=== PATIENT | male | born 1985 | race Caucasian/White ===

== ENCOUNTER 2017-06-20 15:37 | Emergency (ER) | payer OTHER ==
[2017-06-20 15:40] VITALS: BP 106/56; PULSE 81; RESP 12; TEMP 98.2; O2SAT 99
[2017-06-20] MEDS ORDERED: MIRA50TA PO (16:13)
[2017-06-20] MEDS ORDERED: OXYB5TAB8 PO (16:13)
[2017-06-20] MEDS ORDERED: BACL10TA PO (16:13)
--- NOTE | 2017-06-20 16:21 | PD ---
HPI Chief Complaint: GI Complaint Time Seen by Provider: 15:55 Travel History International Travel<30 days: No Contact w/Intl Traveler<30days: No Traveled to known affect area: No History of Present Illness HPI This is a 31-year-old male who presents to the emergency department with a history of cervical spine injury who comes in with bright red blood per rectum. Patient reports that he uses a micro-enema once every other day to evacuate his bowels. 2 days ago he did not evacuation which was normal and then today he had a large amount of blood following the enema. He says even before the enema he had some blood streaks in his diaper. His symptoms are constant, moderate severity with no associated lightheadedness or dizziness. The patient does say 1 week ago he had a little bit of blood with his stool and he said that his nurse had to do a fairly aggressive fecal evacuation with some digital stimulation but in the interim he had a completely normal bowel movement. He does have a history of hemorrhoids but does not feel like any hemorrhoids or swollen currently. He is chronically constipated. He does not take any laxatives. He says usually a micro-enema every other day keeps him regular. PFSH Past Medical History Narrative Medical cervical spine injury spasticity chronic constipation Social History Narrative Social History Pt. is a student at [employer] from [employer] Tobacco Use: No Allergies-Medications (Allergen,Severity, Reaction): Coded Allergies: No Known Allergies (Unverified , 06/20/17) Reported Meds & Prescriptions Reported Meds & Active Scripts Active Reported Ditropan (Oxybutynin Chloride) 5 Mg Tab 5 Mg PO DAILY Myrbetriq (Mirabegron) 50 Mg Tab 50 Mg PO DAILY Baclofen 10 Mg Tab 10 Mg PO DAILY Review of Systems Except as stated in HPI: all other systems reviewed are Neg Physical Exam Narrative GENERAL: Thin, no acute distress SKIN: Focused skin assessment warm and dry. HEAD: Atraumatic. Normocephalic. EYES: Pupils equal and round. No injection or drainage. ENT: Moist mucous membranes NECK: Trachea midline. CARDIOVASCULAR: Regular rate and rhythm. No murmur appreciated. RESPIRATORY: Clear to auscultation. Breath sounds equal bilaterally. GASTROINTESTINAL: Abdomen soft, non-tender, nondistended. External hemorrhoid appreciated on exam with no thrombosis. No fecal impaction, bright red blood is appreciated in the rectum. No obvious anal fissures or tears. MUSCULOSKELETAL: No obvious deformities. NEUROLOGICAL: Awake and alert. No obvious cranial nerve deficits. Complete paralysis with some contracture of the bilateral lower extremities. PSYCHIATRIC: Appropriate mood and affect; insight and judgment normal. Data Data Last Documented VS Vital Signs Date Time Temp Pulse Resp B/P (MAP) Pulse Ox O2 Delivery O2 Flow Rate FiO2 06/20/17 15:40 98.2 81 12 106/56 (73) 99 Orders Orders Complete Blood Count With Diff (06/20/17 16:11) Comprehensive Metabolic Panel (06/20/17 16:11) ^ Insert Iv (06/20/17 16:11) Mineral Oil Enema (Fleet Mineral Oil Nicole (06/20/17 17:45) Labs Laboratory Tests Test 06/20/17 16:30 White Blood Count 10.9 TH/MM3 Red Blood Count 4.39 MIL/MM3 Hemoglobin 13.4 GM/DL Hematocrit 39.0 % Mean Corpuscular Volume 88.9 FL Mean Corpuscular Hemoglobin 30.5 PG Mean Corpuscular Hemoglobin Concent 34.3 % Red Cell Distribution Width 13.2 % Platelet Count 289 TH/MM3 Mean Platelet Volume 7.5 FL Neutrophils (%) (Auto) 73.9 % Lymphocytes (%) (Auto) 15.0 % Monocytes (%) (Auto) 9.6 % Eosinophils (%) (Auto) 0.8 % Basophils (%) (Auto) 0.7 % Neutrophils # (Auto) 8.0 TH/MM3 Lymphocytes # (Auto) 1.6 TH/MM3 Monocytes # (Auto) 1.0 TH/MM3 Eosinophils # (Auto) 0.1 TH/MM3 Basophils # (Auto) 0.1 TH/MM3 CBC Comment DIFF FINAL Differential Comment Blood Urea Nitrogen 15 MG/DL Creatinine 0.61 MG/DL Random Glucose 97 MG/DL Total Protein 7.2 GM/DL Albumin 3.3 GM/DL Calcium Level 8.8 MG/DL Alkaline Phosphatase 70 U/L Aspartate Amino Transf (AST/SGOT) 16 U/L Alanine Aminotransferase (ALT/SGPT) 26 U/L Total Bilirubin 0.3 MG/DL Sodium Level 137 MEQ/L Potassium Level 4.1 MEQ/L Chloride Level 102 MEQ/L Carbon Dioxide Level 29.1 MEQ/L Anion Gap 6 MEQ/L Estimat Glomerular Filtration Rate 155 ML/MIN MDM Medical Decision Making Medical Screen Exam Complete: Yes Emergency Medical Condition: Yes Interpretation(s) Afebrile, no tachycardia, normotensive No leukocytosis Electrolytes are reassuring Differential Diagnosis Fecal impaction, bowel obstruction, hemorrhoids, anal fissure, anal tear Narrative Course This is a 31-year-old male who presents to the emergency department with a history of paraplegia who has had some rectal bleeding in the setting of his typical bowel regimen which involves microenemas and digital stimulation every 2 days. He was unable to have a bowel movement today and he had bright red blood so he became concerned and came to the emergency department. Here in the emergency department his Labs are all reassuring. On exam I did not feel a fecal impaction. We performed a mineral oil enema which had some result but not copious amount. I think the patient is still safe to follow-up with gastroenterology as an outpatient. He has no signs of bowel obstruction, no physical exam findings consistent with fecal impaction and I recommended that he take MiraLAX once a day and continue his current bowel regimen. I did speak to Dr. Santamaria who agreed with the plan. I suspect the bright red blood per rectum is due to his enemas and digital stimulation, and I think at this point the risks of colonoscopy outweigh the benefits. He can follow up with gastroenterology and discuss this with them in clinic and I asked him to return to the emergency department if he feels worse. Diagnosis Primary Impression: Bright red blood per rectum Patient Instructions: General Instructions Additional Instructions: If you develop a large amount of rectum bleeding, severe or worsening abdominal pain, fever>100.4, persistent vomiting or inability to eat or drink return to the emergency department immediately. Follow up with a live ammunition inspector as an outpatient. Take MiraLAX once to twice a day until then. Med/Other Pt SpecificInfo: Prescription(s) given Scripts Polyethylene Glycol 3350 Powder (Miralax Powder) 17 Gm Powd 17 GM PO DAILY for Constipation, #1 CAN 0 Refills Mix and dissolve one measuring cap-ful (17 grams) in water or juice. Prov: Leigh Lynn MD 06/20/17 Disposition: 01 DISCHARGE HOME Condition: Stable Leigh Lynn MD Jun 20, 2017 16:21
[2017-06-20 16:43] LABS: BASOPHIL # 0.1 TH/MM3 (0-0.2); BASOPHIL % 0.7 % (0.0-2.0); EOSINOPHIL # 0.1 TH/MM3 (0-0.4); EOSINOPHIL % 0.8 % (0.0-4.0); HEMOGLOBIN 13.4 GM/DL (13.0-17.0); LYMPHOCYTE # 1.6 TH/MM3 (1.0-4.8); MEAN CELL VOLUME 88.9 FL (80.0-100.0); MEAN CORPUSCULAR HEMOGLOBIN 30.5 PG (27.0-34.0); MEAN CORPUSCULAR HGB CONC 34.3 % (32.0-36.0); MEAN PLATELET VOLUME 7.5 FL (7.0-11.0); MONO % 9.6 % (0.0-8.0); NEUT % 73.9 % (16.0-70.0); PLATELET COUNT 289 TH/MM3 (150-450); RED BLOOD COUNT 4.39 MIL/MM3 (4.50-5.90); RED CELL DISTRIBUTION WIDTH 13.2 % (11.6-17.2); WHITE BLOOD COUNT 10.9 TH/MM3 (4.0-11.0)
[2017-06-20 17:04] LABS: ALBUMIN 3.3 GM/DL (3.4-5.0); AST (GOT) 16 U/L (15-37); BICARBONATE 29.1 MEQ/L (21.0-32.0); BLOOD UREA NITROGEN 15 MG/DL (7-18); CALCIUM 8.8 MG/DL (8.5-10.1); CHLORIDE 102 MEQ/L (98-107); CREATININE 0.61 MG/DL (0.60-1.30); GLOMERULAR FILTRATION RATE 155 ML/MIN (>89); GLUCOSE,RANDOM 97 MG/DL (74-106); SODIUM (NA) 137 MEQ/L (136-145)
[2017-06-20 17:05] LABS: ALT (GPT) 26 U/L (12-78)
[2017-06-20 17:07] LABS: ALKALINE PHOSPHATASE 70 U/L (45-117); TOTAL BILIRUBIN ADULT 0.3 MG/DL (0.2-1.0); TOTAL PROTEIN 7.2 GM/DL (6.4-8.2)
[2017-06-20] MEDS ORDERED: MINERAL OIL ENEMA 118 ML BTL RECTAL ONE (17:45)
[2017-06-20] MEDS ORDERED: MIRA3350 PO (19:21)
== END 2017-06-20 19:31 | disposition home or self-care (01) ==
LOC: NEPC 15:37
DX: K62.5 Hemorrhage of anus and rectum (principal); G82.20 Paraplegia, unspecified; Z87.828 Personal history of other (healed) physical injury and trauma
CPT/HCPCS: 80053; 85025; 99283

== ENCOUNTER 2017-06-21 00:57 | Inpatient (IN) | payer OTHER ==
[2017-06-21] VITALS (7 sets, daily range): BP systolic 88–102; BP diastolic 53–60; PULSE 65–83; RESP 14–18; TEMP 96.4–98.5; O2SAT 97–99
[~2017-06-21] VITALS: Ht 165.1 cm; Wt 65.0 kg
[~2017-06-21 00:57] MED LIST: BACL10TA PO; MIRA3350 PO; MIRA50TA PO; OXYB5TAB8 PO
--- NOTE | 2017-06-21 01:24 | PD ---
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 Reported Ditropan (Oxybutynin Chloride) 5 Mg Tab 5 Mg PO DAILY Myrbetriq (Mirabegron) 50 Mg Tab 50 Mg PO DAILY Baclofen 10 Mg Tab 10 Mg PO DAILY Review of Systems Except as stated in HPI: all other systems reviewed are Neg General / Constitutional: No: Fever Eyes: No: Visual changes HENT: No: Headaches Cardiovascular: No: Chest Pain or Discomfort Respiratory: No: Shortness of Breath Gastrointestinal: Positive: Hematochezia Genitourinary: No: Dysuria Musculoskeletal: No: Pain Skin: No Rash Neurologic: No: Weakness Psychiatric: No: Depression Endocrine: No: Polydipsia Hematologic/Lymphatic: No: Easy Bruising Physical Exam Narrative GENERAL: SKIN: Warm and dry. HEAD: Atraumatic. Normocephalic. EYES: Pupils equal and round. No scleral icterus. No injection or drainage. ENT: No nasal bleeding or discharge. Mucous membranes pink and moist. NECK: Trachea midline. No JVD. CARDIOVASCULAR: Regular rate and rhythm. RESPIRATORY: No accessory muscle use. Clear to auscultation. Breath sounds equal bilaterally. GASTROINTESTINAL: Abdomen soft, non-tender, nondistended. RECTAL EXAM DID NOT SHOW ANY FISSURE OR EXTERNAL HEMORRHOID CAUSE OF BLEEDING, GROSS COAGULATED BLOOD NOTED IN HIS RECTAL VAULT WITHOUT ANY FORMED STOOL. MUSCULOSKELETAL: Extremities without clubbing, cyanosis, or edema. No obvious deformities. PARAPLEGIC WITH DIAPER AND INDWELLING SALAS. NEUROLOGICAL: Awake and alert. No obvious cranial nerve deficits. Motor grossly within normal limits. Five out of 5 muscle strength in the arms and legs. Normal speech. PSYCHIATRIC: Appropriate mood and affect; insight and judgment normal. Data Data Last Documented VS Orders Orders Type And Screen (06/21/17 01:27) Complete Blood Count With Diff (06/21/17 01:27) Place In Observation (06/21/17 ) Vital Signs (Adult) Q4H (06/21/17 02:06) Activity Oob Ad Laura (06/21/17 02:06) Intake + Output CECE.QSHIFT (06/21/17 02:06) Sodium Chloride 0.9% Flush (Ns Flush) (06/21/17 02:15) Sodium Chloride 0.9% Flush (Ns Flush) (06/21/17 09:00) Acetaminophen (Tylenol) (06/21/17 02:15) Ondansetron Inj (Zofran Inj) (06/21/17 02:15) Basic Metabolic Panel (Bmp) (06/22/17 06:00) Scd Bilateral/Knee High CECE.BID (06/21/17 02:06) Naloxone Inj (Narcan Inj) (06/21/17 02:15) Magnesium Hydroxide Liq (Milk Of Magnesi (06/21/17 02:15) Sennosides (Senokot) (06/21/17 02:15) Bisacodyl Supp (Dulcolax Supp) (06/21/17 02:15) Lactulose Liq (Lactulose Liq) (06/21/17 02:15) Hgb & Hct (06/21/17 07:00) Hgb & Hct (06/21/17 19:00) Hgb & Hct (06/22/17 01:00) Consult Gastroenterology (06/21/17 ) Admit Order (Ed Use Only) (06/21/17 02:24) Labs Laboratory Tests Test 06/21/17 01:40 White Blood Count 9.3 TH/MM3 Red Blood Count 4.31 MIL/MM3 Hemoglobin 12.8 GM/DL Hematocrit 37.9 % Mean Corpuscular Volume 87.9 FL Mean Corpuscular Hemoglobin 29.8 PG Mean Corpuscular Hemoglobin Concent 33.9 % Red Cell Distribution Width 12.9 % Platelet Count 291 TH/MM3 Mean Platelet Volume 7.3 FL Neutrophils (%) (Auto) 68.2 % Lymphocytes (%) (Auto) 20.9 % Monocytes (%) (Auto) 8.6 % Eosinophils (%) (Auto) 1.5 % Basophils (%) (Auto) 0.8 % Neutrophils # (Auto) 6.3 TH/MM3 Lymphocytes # (Auto) 1.9 TH/MM3 Monocytes # (Auto) 0.8 TH/MM3 Eosinophils # (Auto) 0.1 TH/MM3 Basophils # (Auto) 0.1 TH/MM3 CBC Comment DIFF FINAL Differential Comment MDM Medical Decision Making Medical Screen Exam Complete: Yes Emergency Medical Condition: Yes Medical Record Reviewed: Yes Differential Diagnosis internal hemorrhoid v av fistula v colitis v diverticulitis Narrative Course cbc, coags and bmp all wnl. added lft's wnl as well....ct abd/pelvis pending results at time patient was admitted to [facility] dr hollins Diagnosis Primary Impression: LOWER GI BLEED Admitting Information Admitting Physician Requests: Observation Scripts Docusate Sodium (Docusate Sodium) 100 Mg Cap 100 MG PO BID Y for CONSTIPATION, #30 CAP 0 Refills Prov: Thony Weinstein MD 06/25/17 Raji Dove MD Jun 21, 2017 01:24
[2017-06-21 01:46] LABS: AUTOMATED NEUTROPHIL # 6.3 TH/MM3 (1.8-7.7); BASOPHIL # 0.1 TH/MM3 (0-0.2); BASOPHIL % 0.8 % (0.0-2.0); EOSINOPHIL # 0.1 TH/MM3 (0-0.4); EOSINOPHIL % 1.5 % (0.0-4.0); HEMATOCRIT 37.9 % (39.0-51.0); HEMOGLOBIN 12.8 GM/DL (13.0-17.0); LYMPH % 20.9 % (9.0-44.0); LYMPHOCYTE # 1.9 TH/MM3 (1.0-4.8); MEAN CELL VOLUME 87.9 FL (80.0-100.0); MEAN CORPUSCULAR HEMOGLOBIN 29.8 PG (27.0-34.0); MEAN CORPUSCULAR HGB CONC 33.9 % (32.0-36.0); MEAN PLATELET VOLUME 7.3 FL (7.0-11.0); MONO % 8.6 % (0.0-8.0); MONOCYTE # 0.8 TH/MM3 (0-0.9); NEUT % 68.2 % (16.0-70.0); PLATELET COUNT 291 TH/MM3 (150-450); RED BLOOD COUNT 4.31 MIL/MM3 (4.50-5.90); RED CELL DISTRIBUTION WIDTH 12.9 % (11.6-17.2); WHITE BLOOD COUNT 9.3 TH/MM3 (4.0-11.0)
[2017-06-21] MEDS ORDERED: NALOXONE HCL 0.4 MG/ML AMP IV PUSH PRN (02:15)
[2017-06-21] MEDS ORDERED: BISACODYL 10 MG SUPP RECTAL PRN (02:15)
[2017-06-21] MEDS ORDERED: SENNOSIDES 8.6 MG TAB PO PRN (02:15)
[2017-06-21] MEDS ORDERED: ONDANSETRON HCL 4 MG/2 ML VIAL IVP PRN (02:15)
[2017-06-21] MEDS ORDERED: ACETAMINOPHEN 325 MG TAB PO PRN (02:15)
[2017-06-21] MEDS ORDERED: LACTULOSE SYRUP 20 GM/30 ML CUP PO PRN (02:15)
[2017-06-21] MEDS ORDERED: MAGNESIUM HYDROXIDE SUSP 30 ML CUP PO PRN (02:15)
[2017-06-21] MEDS ORDERED: SODIUM CHLORIDE 0.9% FLUSH 10 ML FLUSH IV FLUSH PRN (02:15)
--- NOTE | 2017-06-21 02:41 | HHI.HP ---
[facility] Primary Care Physician No Primary Care Physician Admission Diagnosis GI BLEED (BRBPR) Diagnoses: Travel History International Travel<30 Days: No Contact w/Intl Traveler <30 Da: No Traveled to Known Affected Are: No History of Present Illness -year-old male with a past medical history significant for spinal cord injury presents the emergency department with bright red blood per rectum. The patient reports that 1 week ago when doing his usual enema no stool was produced and his healthcare administrative assistant did digital stimulation resulting in the retrieval of several pieces of hard stool with minimal amounts of blood. Since that time the patient has done 2 micro-enemas and 2 full enemas without incident. Yesterday the patient was doing his usual micro-enema when he noticed a significant amount of blood with the enema. He came to the emergency department for evaluation, was not found to be actively bleeding, H&H was stable and was discharged to home. The patient reports he was getting ready for bed around midnight when he noticed that blood head seeped through his diaper and saturated his sheets. He returned to the emergency department where he was found to have approximately 120 cc's of bright red blood without stool present in his diaper. H&H remained stable. The patient denies any palpitation , shortness of breath or dizziness/lightheadedness. He reports he feels that he is in good health. He does endorse a 5 day history of fever with last symptoms 2 days ago. Denies nausea/vomiting or diarrhea. Vital signs: Temperature 98.2, pulse 81, respirations 12, BP 106/56, pulse ox 99% on room air. Review of Systems Denies fever or chills Denies blurry vision, otorrhea, rhinorrhea Denies sore throat and cough No chest pain, palpitations No shortness of breath or wheezing No abdominal pain Denies diarrhea/nausea/vomiting. Positive constipation. Denies muscle pain Denies focal weakness No rashes Past Family Social History Past Medical History Spinal cord injury at C5-C6, 14 years ago Past Surgical History Spinal fusion Reported Medications Reported Meds & Active Scripts Active Miralax Powder (Polyethylene Glycol 3350 Powder) 17 Gm Powd 17 Gm PO DAILY Mix and dissolve one measuring cap-ful (17 grams) in water or juice. Reported Ditropan (Oxybutynin Chloride) 5 Mg Tab 5 Mg PO DAILY Myrbetriq (Mirabegron) 50 Mg Tab 50 Mg PO DAILY Baclofen 10 Mg Tab 10 Mg PO DAILY Allergies: Coded Allergies: No Known Allergies (Unverified , 06/21/17) Family History Negative for coronary artery disease/diabetes mellitus Social History Denies alcohol, tobacco and illicit drugs Physical Exam Vital Signs Vital Signs Date Time Temp Pulse Resp B/P (MAP) Pulse Ox O2 Delivery O2 Flow Rate FiO2 06/21/17 01:00 98.2 72 16 102/60 (36) 98 Physical Exam GENERAL: Thin, male lying in bed SKIN: No rashes, ecchymoses or lesions. Cool and dry. HEAD: Atraumatic. Normocephalic. No temporal or scalp tenderness. EYES: Pupils equal round and reactive. Extraocular motions intact. No scleral icterus. No injection or drainage. ENT: Nose without bleeding, purulent drainage or septal hematoma. Throat without erythema, tonsillar hypertrophy or exudate. Uvula midline. Airway patent. NECK: Trachea midline. No JVD or lymphadenopathy. Supple, nontender, no meningeal signs. CARDIOVASCULAR: Regular rate and rhythm without murmurs, gallops, or rubs. RESPIRATORY: Clear to auscultation. Breath sounds equal bilaterally. No wheezes , rales, or rhonchi. GASTROINTESTINAL: Abdomen soft, non-tender, nondistended. No hepato-splenomegaly , or palpable masses. No guarding. : Indwelling Duran MUSCULOSKELETAL: Extremities without clubbing, cyanosis, or edema. No joint tenderness, effusion, or edema noted. Paraplegic. NEUROLOGICAL: Awake and alert. Cranial nerves II through XII intact. Normal speech. Laboratory Laboratory Tests Test 06/21/17 01:40 White Blood Count 9.3 Red Blood Count 4.31 Hemoglobin 12.8 Hematocrit 37.9 Mean Corpuscular Volume 87.9 Mean Corpuscular Hemoglobin 29.8 Mean Corpuscular Hemoglobin Concent 33.9 Red Cell Distribution Width 12.9 Platelet Count 291 Mean Platelet Volume 7.3 Neutrophils (%) (Auto) 68.2 Lymphocytes (%) (Auto) 20.9 Monocytes (%) (Auto) 8.6 Eosinophils (%) (Auto) 1.5 Basophils (%) (Auto) 0.8 Neutrophils # (Auto) 6.3 Lymphocytes # (Auto) 1.9 Monocytes # (Auto) 0.8 Eosinophils # (Auto) 0.1 Basophils # (Auto) 0.1 CBC Comment DIFF FINAL Differential Comment Result Diagram: 06/21/17 0140 Caprini VTE Risk Assessment Caprini VTE Risk Assessment: No/Low Risk (score <= 1) Caprini Risk Assessment Model Point Value = 1 Point Value = 2 Point Value = 3 Point Value = 5 Age 41-60 Minor surgery BMI > 25 kg/m2 Swollen legs Varicose veins or History of unexplained or recurrent spontaneous Oral contraceptives or hormone replacement Sepsis (< 1 month) Serious lung disease, including pneumonia (< 1 month) Abnormal pulmonary function Acute myocardial infarction Congestive heart failure (< 1 month) History of inflammatory bowel disease Medical patient at bed rest Age 61-74 Arthroscopic surgery Major open surgery (> 45 min) Laparoscopic surgery (> 45 min) Malignancy Confined to bed (> 72 hours) Immobilizing plaster cast Central venous access Age >= 75 History of VTE Family history of VTE Factor V Leiden Prothrombin [id number] Lupus anticoagulant Anticardiolipin antibodies Elevated serum homocysteine Heparin-induced thrombocytopenia Other congenital or acquired thrombophilia Stroke (< 1 month) Elective arthroplasty Hip, pelvis, or leg fracture Acute spinal cord injury (< 1 month) Prophylaxis Regimen Total Risk Factor Score Risk Level Prophylaxis Regimen 0-1 Low Early ambulation 2 Moderate Order ONE of the following: *Sequential Compression Device (SCD) *Heparin 5000 units SQ BID 3-4 Higher Order ONE of the following medications: *Heparin 5000 units SQ TID *Enoxaparin/Lovenox 40 mg SQ daily (WT < 150 kg, CrCl > 30 mL/min) *Enoxaparin/Lovenox 30 mg SQ daily (WT < 150 kg, CrCl > 10-29 mL/min) *Enoxaparin/Lovenox 30 mg SQ BID (WT < 150 kg, CrCl > 30 mL/min) AND/OR *Sequential Compression Device (SCD) 5 or more Highest Order ONE of the following medications: *Heparin 5000 units SQ TID (Preferred with Epidurals) *Enoxaparin/Lovenox 40 mg SQ daily (WT < 150 kg, CrCl > 30 mL/min) *Enoxaparin/Lovenox 30 mg SQ daily (WT < 150 kg, CrCl > 10-29 mL/min) *Enoxaparin/Lovenox 30 mg SQ BID (WT < 150 kg, CrCl > 30 mL/min) AND *Sequential Compression Device (SCD) Assessment and Plan Assessment and Plan Assessment/plan: 1. GI bleed H&H stable from yesterday Serial H&H every 6 hours IV Protonix Gastroenterology consulted, appreciate recommendations Clear liquid diet Monitor for signs of bleeding 2. Paraplegia Patient with indwelling Duran Continue home Ditropan, Myrbetriq and Baclofen FEN Clears NS at 75 cc/hr Electrolytes: monitor and replete prn Holding pharmacologic anticoagulation for active GI bleed Kinza Hayes MD Jun 21, 2017 02:41
[2017-06-21] MEDS ORDERED: PANTOPRAZOLE SODIUM 40 MG VIAL IV PUSH SCH (03:00)
[2017-06-21] MEDS: SODIUM CHLOR 0.9% 1000 ML INJ 1,000 ML IV SCH ×2 (03:10→16:04)
[2017-06-21] MEDS: BACLOFEN 10 MG TAB PO SCH (08:43)
[2017-06-21] MEDS: OXYBUTYNIN CHLORIDE 5 MG TAB PO SCH (08:43)
[2017-06-21] MEDS: SODIUM CHLORIDE 0.9% FLUSH 10 ML FLUSH IV FLUSH SCH ×2 (08:44→21:24)
[2017-06-21] MEDS ORDERED: Mirabegron (Myrbetriq) 50 MG) PO SCH (09:00)
[2017-06-21 09:13] LABS: HEMATOCRIT 35.2 % (39.0-51.0); HEMOGLOBIN 11.8 GM/DL (13.0-17.0)
--- NOTE | 2017-06-21 10:29 | PD.CONS ---
HPI History of Present Illness This is a 31 year old male with hx spinal cord injury who presented for c/o rectal bleeding. Last night he had sensation of having BM and found only fresh blood independent of stool.He admits having fever last week. Admits chronic constipation and regularly uses micro enemas for a bowel regimen. 1 week ago he was constipated requiring digital maneuvers to remove hard stool and saw scant BRBPR which improved. Cites chornic constipation that has been worse than usual in the last week. he thinks he may have an EGD many years ago from abd discomfort but recalls no details other than that nothing was found. Never had colonoscopy. No abd pain, n/v. Unsure if there has been weight loss. Denies feeling weak. Has concerns about procedures and autononmic dysreflexia. Not on blood thinners (Laura Bustamante) PFSH Past Medical History Spinal cord injury at C5-C6, 14 years ago Past Surgical History Spinal fusion (Laura Bustamante) Coded Allergies: No Known Allergies (Unverified , 06/21/17) Family History Negative for coronary artery disease/diabetes mellitus Social History Denies alcohol, tobacco and illicit drugs (Laura Bustamante) Review of Systems Constitutional: DENIES: Fever Endocrine: DENIES: Polydipsia Eyes: DENIES: Blurred vision Ears, nose, mouth, throat: DENIES: Hearing loss Respiratory: DENIES: Cough Cardiovascular: DENIES: Chest pain Gastrointestinal: COMPLAINS OF: Bloody stools, Constipation, DENIES: Abdominal pain, Black stools, Diarrhea, Nausea, Vomiting, Hematemesis Genitourinary: DENIES: Hematuria Musculoskeletal: DENIES: Joint Swelling Integumentary: DENIES: Pruritus Hematologic/lymphatic: DENIES: Bruising Immunologic/allergic: DENIES: Eczema Neurologic: COMPLAINS OF: Abnormal gait (wheelchair) Psychiatric: DENIES: Confusion (Laura Bustamante) GI Exam Vitals I&O Vital Signs Date Time Temp Pulse Resp B/P (MAP) Pulse Ox O2 Delivery O2 Flow Rate FiO2 06/21/17 08:40 96.5 82 18 97/53 (68) 97 06/21/17 03:56 98.1 73 18 91/53 (66) 98 06/21/17 03:16 98.5 65 14 91/54 (66) 98 Room Air 06/21/17 01:00 98.2 72 16 102/60 (74) 98 I/O 06/20/17 06/20/17 06/20/17 06/21/17 06/21/17 06/21/17 07:00 15:00 23:00 07:00 15:00 23:00 Output Total 200 ml Balance -200 ml Output Urine Total 200 ml Laboratory Test 06/21/17 01:40 06/21/17 08:55 White Blood Count 9.3 TH/MM3 Red Blood Count 4.31 MIL/MM3 Hemoglobin 12.8 GM/DL 11.8 GM/DL Hematocrit 37.9 % 35.2 % Mean Corpuscular Volume 87.9 FL Mean Corpuscular Hemoglobin 29.8 PG Mean Corpuscular Hemoglobin Concent 33.9 % Red Cell Distribution Width 12.9 % Platelet Count 291 TH/MM3 Mean Platelet Volume 7.3 FL Neutrophils (%) (Auto) 68.2 % Lymphocytes (%) (Auto) 20.9 % Monocytes (%) (Auto) 8.6 % Eosinophils (%) (Auto) 1.5 % Basophils (%) (Auto) 0.8 % Neutrophils # (Auto) 6.3 TH/MM3 Lymphocytes # (Auto) 1.9 TH/MM3 Monocytes # (Auto) 0.8 TH/MM3 Eosinophils # (Auto) 0.1 TH/MM3 Basophils # (Auto) 0.1 TH/MM3 CBC Comment DIFF FINAL Differential Comment Physical Examination HEENT: PERRL; normocephalic; atraumatic; no jaundice. CHEST: CTA CARDIAC: RRR ABDOMEN: Soft, nondistended, nontender; no hepatosplenomegaly; bowel sounds are present in all four quadrants. EXTREMITIES: No clubbing, cyanosis, or edema. SKIN: Normal; no rash; no jaundice. SCIENCE ANALYST: No focal deficits; alert and oriented times three. (Laura Bustamante [facility]) Assessment and Plan Plan ASSESSMENT - rectal bleeding - intermittent scant BRBPR with digital maneuvers and 2 d ago developed more profuse rectal bleeding independent of stool had severe constipation a week ago requiring mult digital maneuvers, cites swollen hemorrhoid as well. recommend colonoscopy, pt has concerns about procedures, sedation, and autonomic dysreflexia - chronic constipation with recent worsening - has been more constipated of late , see above. his bowel regimen consists of enemas and digital maneuvers, takes no medications - anemia - mild, normocytic. could be 2/2 above. - spinal cord injury PLAN - colonoscopy tomorrow - obtain consent - clear liquid diet today - NPO after midnight - mg citrate prep - can use dignishield when liquid stool during prep - NPO after midnight - monitor HH - add miralax daily - further recs to follow pt seen by myself and DR Matta and myself and this note is written on his behalf (Laura Bustamante) Physician Comments Seen and examined with JOEL, no bleeding. Colonoscopy planned for tomorrow with golytle prep. Discussed risks with pt. Thank you (Mitchell Matta MD) Laura Bustamante Jun 21, 2017 10:29 Mitchell Matta MD Jun 21, 2017 15:45
[2017-06-21] MEDS: POLYETHYLENE GLYCOL 17 GM PKG PO SCH (10:45)
--- NOTE | 2017-06-21 12:57 | HHI.PR ---
Subjective Remarks F/U Hematochezia. Had another episode of bright red blood per rectum this morning. Denies abdominal pain. Patient states usually has low BP denies syncope, dizziness, chest pain and shortness of breath. Discussed with nursing staff Objective Vitals Vital Signs Date Time Temp Pulse Resp B/P (MAP) Pulse Ox O2 Delivery O2 Flow Rate FiO2 06/21/17 12:07 96.6 70 18 98/56 (70) 99 06/21/17 08:40 96.5 82 18 97/53 (68) 97 06/21/17 03:56 98.1 73 18 91/53 (66) 98 06/21/17 03:16 98.5 65 14 91/54 (66) 98 Room Air 06/21/17 01:00 98.2 72 16 102/60 (74) 98 I/O 06/20/17 06/20/17 06/20/17 06/21/17 06/21/17 06/21/17 07:00 15:00 23:00 07:00 15:00 23:00 Output Total 200 ml Balance -200 ml Output Urine Total 200 ml Result Diagram: 06/21/17 0855 Objective Remarks GENERAL: Thin, male lying in bed SKIN: No rashes, ecchymoses or lesions. Cool and dry. CARDIOVASCULAR: Regular rate and rhythm without murmurs, gallops, or rubs. RESPIRATORY: Clear to auscultation. Breath sounds equal bilaterally. No wheezes , rales, or rhonchi. GASTROINTESTINAL: Abdomen soft, non-tender, nondistended. No guarding. : Indwelling Duran MUSCULOSKELETAL: Extremities without clubbing, cyanosis, or edema. No joint tenderness, effusion, or edema noted. Paraplegic. NEUROLOGICAL: Awake and alert. Cranial nerves II through XII intact. Normal speech. A/P Problem List: (1) GIB (gastrointestinal bleeding) ICD Code: K92.2 - Gastrointestinal hemorrhage, unspecified Assessment and Plan 1. GI bleed. Continue PPI. Patient for colonoscopy in the morning 2. Constipation. Continue MiraLAX 3. Anemia secondary to acute blood loss. Monitor hemoglobin and hematocrit to keep hemoglobin at least 8. 4. SCI with Paraplegia. Patient with indwelling Duran. Continue home Ditropan, Myrbetriq and Baclofen FEN Clears NS at 75 cc/hr Electrolytes: monitor and replete prn Holding pharmacologic anticoagulation for active GI bleed Discharge Planning Patient needing colonoscopy, discharge when cleared by GI Geovanny Llanos MD Jun 21, 2017 12:56
[2017-06-21 15:13] LABS: HEMATOCRIT 34.1 % (39.0-51.0); HEMOGLOBIN 11.8 GM/DL (13.0-17.0)
[2017-06-21 15:41] LABS: INTERNATIONAL NORMALIZED RATIO 1.2 RATIO; PROTHROMBIN TIME - PATIENT 12.1 SEC (9.8-11.6)
[2017-06-21] MEDS ORDERED: MAGNESIUM CITRATE SOLN 300 ML BTL PO ONE ×2 (16:00→18:00)
[2017-06-21] MEDS ORDERED: SODIUM CHLOR 0.9% 250 ML INJ 250 ML IV PRN (19:30)
[2017-06-21] MEDS ORDERED: SODIUM CHLOR 0.9% 250 ML INJ 250 ML IV ONE (19:30)
[2017-06-21 22:07] LABS: HEMATOCRIT 34.8 % (39.0-51.0); HEMOGLOBIN 12.2 GM/DL (13.0-17.0)
[2017-06-22 03:19] LABS: HEMATOCRIT 36.4 % (39.0-51.0); HEMOGLOBIN 12.5 GM/DL (13.0-17.0)
[2017-06-22 03:58] LABS: BICARBONATE 28.9 MEQ/L (21.0-32.0); CALCIUM 8.3 MG/DL (8.5-10.1); CREATININE 0.54 MG/DL (0.60-1.30)
[2017-06-22] MEDS ORDERED: POVIDONE IODINE 5% (ANTISEPSIS KIT) 4 APPLICATIONS EACH NARE PRN ×2 (05:30→10:00)
[2017-06-22] MEDS ORDERED: METOPROLOL TARTRATE 25 MG TAB PO PRN ×2 (05:30→10:00)
[2017-06-22] MEDS ORDERED: SODIUM CHLORID 0.9% 500 ML IV PRN ×2 (05:30→10:00)
[2017-06-22] MEDS ORDERED: LACTATED RINGER'S 1000 ML IV PRN ×2 (05:30→10:00)
[2017-06-22] MEDS ORDERED: CHLORHEXIDINE GLUCONATE 2 % 1 PACK (2 CLOTHS) TOPICAL PRN ×2 (05:30→10:00)
[2017-06-22 08:15] VITALS: BP 89/50; PULSE 62; RESP 18; TEMP 97.3; O2SAT 95
--- NOTE | 2017-06-22 08:25 | HHI.PR ---
Subjective Remarks Follow-up rectal bleeding. Decreasing hematochezia. Denies dizziness, syncope , chest pain or shortness of breath discussed with RN Objective Vitals Vital Signs Date Time Temp Pulse Resp B/P (MAP) Pulse Ox O2 Delivery O2 Flow Rate FiO2 06/22/17 08:15 97.3 62 18 89/50 (63) 95 06/21/17 20:10 98.5 67 18 100/54 (69) 97 06/21/17 16:51 96.4 83 18 88/54 (65) 99 06/21/17 12:07 96.6 70 18 98/56 (70) 99 06/21/17 08:40 96.5 82 18 97/53 (68) 97 I/O 06/21/17 06/21/17 06/21/17 06/22/17 06/22/17 06/22/17 07:00 15:00 23:00 07:00 15:00 23:00 Output Total 200 ml 1400 ml Balance -200 ml -1400 ml Output Urine Total 200 ml 1400 ml # Bowel Movements 2 Result Diagram: 06/22/17 0242 06/22/17 0242 Objective Remarks GENERAL: Thin, male lying in bed SKIN: No rashes, ecchymoses or lesions. Cool and dry. CARDIOVASCULAR: Regular rate and rhythm without murmurs, gallops, or rubs. RESPIRATORY: Clear to auscultation. Breath sounds equal bilaterally. No wheezes , rales, or rhonchi. GASTROINTESTINAL: Abdomen soft, non-tender, nondistended. No guarding. : Indwelling Duran MUSCULOSKELETAL: Extremities without clubbing, cyanosis, or edema. No joint tenderness, effusion, or edema noted. Paraplegic. NEUROLOGICAL: Awake and alert. Cranial nerves II through XII intact. Normal speech. A/P Problem List: (1) GIB (gastrointestinal bleeding) ICD Code: K92.2 - Gastrointestinal hemorrhage, unspecified Assessment and Plan 1. GI bleed. Continue PPI. Patient for colonoscopy today 2. Constipation. Continue MiraLAX 3. Anemia secondary to acute blood loss. Monitor hemoglobin and hematocrit to keep hemoglobin at least 8. 4. SCI with Paraplegia. Patient with indwelling Duran. Continue home Ditropan, Myrbetriq and Baclofen FEN Clears NS at 75 cc/hr Electrolytes: monitor and replete prn Holding pharmacologic anticoagulation for active GI bleed Discharge Planning Patient needing colonoscopy, discharge when cleared by GI Geovanny Llanos MD Jun 22, 2017 08:25
[2017-06-22] MEDS: OXYBUTYNIN CHLORIDE 5 MG TAB PO SCH (08:28)
[2017-06-22] MEDS: SODIUM CHLORIDE 0.9% FLUSH 10 ML FLUSH IV FLUSH SCH ×2 (08:28→20:14)
[2017-06-22] MEDS: PANTOPRAZOLE SOD 40 MG DELAYED RELEASE TAB PO SCH (08:28)
[2017-06-22] MEDS: POLYETHYLENE GLYCOL 17 GM PKG PO SCH (08:29)
[2017-06-22] MEDS: BACLOFEN 10 MG TAB PO SCH (08:29)
[2017-06-22] MEDS ORDERED: INSULIN HUMAN REGULAR 1,000 UNITS/10 ML VIAL SQ PRN (10:00)
--- NOTE | 2017-06-22 10:13 | GIPROC ---
[facility] [address] [facility]. [facility], [address] COLONOSCOPY PROCEDURE REPORT EXAM DATE: 06/22/2017 PATIENT NAME: Reuben Frank MR #: [id number] BIRTHDATE: 1985 ENDOSCOPIST: Mitchell Matta MD ORDER #: [id number] ASSISTANT TERMINAL MANAGER: Ish Hermosillo and Sully Buckner STATUS: inpatient INDICATIONS: The patient is a 31 yr old male here for a colonoscopy due to hematochezia PROCEDURE PERFORMED: Colonoscopy, diagnostic MEDICATIONS: None and Per Anesthesia. PREP QUALITY: The [place] Bowel Prep Score was Right colon 2, Mid colon 2, and Left colon 1. Total = 5. PREP TYPE:GoLytely ESTIMATED BLOOD LOSS: None CONSENT: The patient understands the risks and benefits of the procedure and understands that these risks include, but are not limited to: sedation, allergic reaction, infection, perforation and/or bleeding. Alternative means of evaluation and treatment include, among others: physical exam, x-rays, and/or surgical intervention. The patient elects to proceed with this endoscopic procedure. medical equipment was checked for proper function. Hand hygiene and appropriate measures for infection prevention was taken. After the risks, benefits and alternatives of the procedure were thoroughly explained, Informed consent was verified, confirmed and timeout was successfully executed by the treatment team. A digital exam revealed external hemorrhoids The Pentax [id number] endoscope was introduced through the anus and advanced to the cecum, which was identified by both the appendix and ileocecal valve. The instrument was then slowly withdrawn as the colon was fully examined. COLON FINDINGS: Abnormal mucosa in the rectum with a lot of blood in the rectum. ? walled off perforation, vs. diverticulum vs. mass. The colon mucosa was otherwise normal. The scope was then completely withdrawn from the patient and the procedure terminated. PROCEDURE WITHDRAWAL TIME:7minutes ADVERSE EVENTS: There were no complications. IMPRESSIONS: 1. Abnormal mucosa in the rectum with a lot of blood in the rectum. ? walled off perforation, vs. diverticulum vs. mass 2. The colon mucosa was otherwise normal 3. Revealed external hemorrhoids RECOMMENDATIONS: 1. Surgery 2. Xray for CT of abdomen with contrast 3. Xray for CT of pelvis with contrast RECALL: Return 3 days Flexible Sigmoidoscopy Mitchell Matta MD eSigned: Mitchell Matta MD 06/22/2017 10:13 AM cc: PATIENT NAME: Reuben Frank MR#: [id number]
[2017-06-22] MEDS ORDERED: DO NOT ADM ANY ANTICOAGULANT DRUGS PRN (11:00)
[2017-06-22 11:56] VITALS: BP 107/54; PULSE 56; RESP 18; TEMP 98.3; O2SAT 95
[2017-06-22] MEDS ORDERED: PHENYLEPH/NS 1000 MCG/10 ML SYR IV ONE (12:00)
[2017-06-22] MEDS ORDERED: PROPOFOL 200 MG/20 ML AMP IV ONE (12:00)
[2017-06-22] MEDS ORDERED: LIDOCAINE HCL 1% PF 5 ML SYRINGE OTHER ONE (12:00)
[2017-06-22] MEDS ORDERED: DIATRIZOATE MEGLUM/DIATRIZOATE SOD 9 ML CUP PO ONE (16:15)
[2017-06-22 17:36] VITALS: BP 118/66; PULSE 66; RESP 18; TEMP 98.3; O2SAT 97
[2017-06-22] MEDS ORDERED: IOHEXOL 350 MG/ML 10 ML VIAL (for RAD DIAG) IVCONTRAST ONE (18:02)
[2017-06-22] MEDS: SODIUM CHLOR 0.9% 1000 ML INJ 1,000 ML IV SCH ×2 (18:21→19:00)
--- NOTE | 2017-06-22 18:32 | RADRPT ---
EXAM DATE/TIME: 06/22/2017 17:57 [place] COMPARISON: No previous studies available for comparison. INDICATIONS : Blood in stool. IV CONTRAST: 82 cc Omnipaque 350 (iohexol) IV ORAL CONTRAST: Prescribed oral contrast ingested. RADIATION DOSE: 4.97 CTDIvol (mGy) MEDICAL HISTORY : Parapalegia. SURGICAL HISTORY : Cervical fusion ENCOUNTER: Initial ACUITY: 1 day PAIN SCALE: 0/10 LOCATION: Bilateral abdomen TECHNIQUE: Volumetric scanning of the abdomen and pelvis was performed. Using automated exposure control and ad justment of the mA and/or kV according to patient size, radiation dose was kept as low as reasonably achievable to obtain optimal diagnostic quality images. DICOM format image data is available electro nically for review and comparison. FINDINGS: Lung bases demonstrate trace left pleural fluid and atelectasis. No acute findings in the liver, spleen, adrenals, kidneys or pancreas. There is inflammatory change around the rectum. An air-fluid level is present on the left side ischio rectal fossa with fluid measuring about 3.6 cm in diameter, suspicious for perirectal abscess. There is also some suspected loculated air in the right side that may represent small perirectal abscesses. Catheter present within bladder. Abnormal soft tissue over the lower sacrum and coccyx, possibly chele y decubitus ulcer. CONCLUSION: 1. They are suspected perirectal abscesses measuring up to 3.6 cm on the left with surrounding inflam matory change extending into the ischiorectal fossa bilaterally. Also suspected small perirectal absc ess is on the right. 2. Trace pleural fluid. Abhilash Sen MD on June 22, 2017 at 18:22 Board Certified Radiologist. This report was verified electronically.
[2017-06-22 21:54] VITALS: BP 108/65; PULSE 69; RESP 17; TEMP 98.3; O2SAT 97
[2017-06-23 01:14] VITALS: BP 96/52; PULSE 69; RESP 17; TEMP 98.4; O2SAT 95
[2017-06-23 04:45] VITALS: BP 123/56; PULSE 75; RESP 17; TEMP 99; O2SAT 97
[2017-06-23 06:56] LABS: AUTOMATED NEUTROPHIL # 8.3 TH/MM3 (1.8-7.7); BASOPHIL # 0.1 TH/MM3 (0-0.2); BASOPHIL % 0.5 % (0.0-2.0); EOSINOPHIL # 0.1 TH/MM3 (0-0.4); EOSINOPHIL % 1.1 % (0.0-4.0); HEMATOCRIT 35.6 % (39.0-51.0); LYMPH % 14.3 % (9.0-44.0); LYMPHOCYTE # 1.5 TH/MM3 (1.0-4.8); MEAN CELL VOLUME 88.9 FL (80.0-100.0); MEAN CORPUSCULAR HEMOGLOBIN 29.9 PG (27.0-34.0); MEAN CORPUSCULAR HGB CONC 33.7 % (32.0-36.0); MEAN PLATELET VOLUME 7.6 FL (7.0-11.0); MONO % 7.5 % (0.0-8.0); MONOCYTE # 0.8 TH/MM3 (0-0.9); NEUT % 76.6 % (16.0-70.0); PLATELET COUNT 253 TH/MM3 (150-450); RED CELL DISTRIBUTION WIDTH 12.8 % (11.6-17.2); WHITE BLOOD COUNT 10.8 TH/MM3 (4.0-11.0)
[2017-06-23 08:00] VITALS: BP 102/56; PULSE 74; RESP 16; TEMP 97.8; O2SAT 98
[2017-06-23] MEDS: POLYETHYLENE GLYCOL 17 GM PKG PO SCH (08:38)
[2017-06-23] MEDS: SODIUM CHLORIDE 0.9% FLUSH 10 ML FLUSH IV FLUSH SCH ×2 (08:38→21:40)
[2017-06-23] MEDS: PANTOPRAZOLE SOD 40 MG DELAYED RELEASE TAB PO SCH (08:39)
[2017-06-23] MEDS: SODIUM CHLOR 0.9% 1000 ML INJ 1,000 ML IV SCH ×2 (08:40→17:33)
[2017-06-23] MEDS: OXYBUTYNIN CHLORIDE 5 MG TAB PO SCH (08:40)
[2017-06-23] MEDS: BACLOFEN 10 MG TAB PO SCH (08:40)
--- NOTE | 2017-06-23 09:52 | HHI.GIFU ---
Subjective Remarks Pt resting in bed. Rectal bleeding has decreased. (Laura Bustamante) Objective Vitals I&O Vital Signs Date Time Temp Pulse Resp B/P (MAP) Pulse Ox O2 Delivery O2 Flow Rate FiO2 06/23/17 08:00 97.8 74 16 102/56 (71) 98 06/23/17 04:45 99.0 75 17 123/56 (78) 97 06/23/17 01:14 98.4 69 17 96/52 (67) 95 06/22/17 21:54 98.3 69 17 108/65 (79) 97 06/22/17 17:36 98.3 66 18 118/66 (83) 97 06/22/17 11:56 98.3 56 18 107/54 (71) 95 06/22/17 11:05 92 17 96 Room Air 06/22/17 11:00 97.8 91 17 93/59 (70) 96 Room Air 06/22/17 10:50 88 17 90/52 (65) 97 Nasal Cannula 2 06/22/17 10:45 89 18 87/54 (65) 99 Nasal Cannula 3 06/22/17 10:35 98.5 85 18 92/51 (65) 98 Nasal Cannula 3 I/O 06/22/17 06/22/17 06/22/17 06/23/17 06/23/17 06/23/17 07:00 15:00 23:00 07:00 15:00 23:00 Intake Total 1190 ml Output Total 450 ml 2150 ml 700 ml 750 ml Balance -450 ml -960 ml -700 ml -750 ml Intake Oral 1190 ml Output Urine Total 450 ml 2150 ml 700 ml 750 ml # Bowel Movements 2 Laboratory Laboratory Tests Test 06/23/17 04:11 White Blood Count 10.8 Red Blood Count 4.00 Hemoglobin 12.0 Hematocrit 35.6 Mean Corpuscular Volume 88.9 Mean Corpuscular Hemoglobin 29.9 Mean Corpuscular Hemoglobin Concent 33.7 Red Cell Distribution Width 12.8 Platelet Count 253 Mean Platelet Volume 7.6 Neutrophils (%) (Auto) 76.6 Lymphocytes (%) (Auto) 14.3 Monocytes (%) (Auto) 7.5 Eosinophils (%) (Auto) 1.1 Basophils (%) (Auto) 0.5 Neutrophils # (Auto) 8.3 Lymphocytes # (Auto) 1.5 Monocytes # (Auto) 0.8 Eosinophils # (Auto) 0.1 Basophils # (Auto) 0.1 CBC Comment DIFF FINAL Differential Comment Imaging Last Impressions Abdomen/Pelvis CT 06/22/17 0000 Signed Impressions: Service Date/Time: Thursday, June 22, 2017 17:57 - CONCLUSION: 1. They are suspected perirectal abscesses measuring up to 3.6 cm on the left with surrounding inflammatory change extending into the ischiorectal fossa bilaterally. Also suspected small perirectal abscess is on the right. 2. Trace pleural fluid. Abhilash Sen MD Physical Exam HEENT: PERRL; normocephalic; atraumatic; no jaundice. CHEST: CTA CARDIAC: RRR ABDOMEN: Soft, nondistended, nontender; no hepatosplenomegaly; bowel sounds are present in all four quadrants. EXTREMITIES: No clubbing, cyanosis, or edema. SKIN: Normal; no rash; no jaundice. AUTOCAD OPERATOR: No focal deficits; alert and oriented times three. (Laura Bustamante) Assessment and Plan Plan ASSESSMENT - rectal bleeding, abnormal colonoscopy, abnormal ct - intermittent scant BRBPR with digital maneuvers and 2 d ago developed more profuse rectal bleeding independent of stool had severe constipation a week ago requiring mult digital maneuvers, cites swollen hemorrhoid as well. s/p colonoscopy found abnormal mucosa rectum, blood, walled off perforation vs diverticulum vs abscess. subsequent CT showed suspected perirectal abscesses. d/w CRS, they will evaluate pt. - chronic constipation with recent worsening - has been more constipated of late , see above. his bowel regimen consists of enemas and digital maneuvers, takes no medications - anemia - mild, normocytic. could be 2/2 above. hh stable - spinal cord injury PLAN - CRS consult - ID consult - monitor HH - add miralax daily when pt taking PO -GI will sign off. please reconsult if needed pt seen by myself and DR Matta and myself and this note is written on his behalf (Laura Bustamante) Physician Comments CT finding reviewed. Discussed with Dr. Harmon yesterday. Consult ID. GI will sign off, reconsult PRN. Thank you (Mitchell Matta MD) Laura Bustamante Jun 23, 2017 09:52 Mitchell Matta MD Jun 23, 2017 11:25
[2017-06-23 12:00] VITALS: BP 91/52; PULSE 74; RESP 16; TEMP 98.4; O2SAT 97
[2017-06-23] MEDS ORDERED: LIDOCAINE HCL 1% PF 5 ML SYRINGE OTHER ONE (12:00)
[2017-06-23] MEDS ORDERED: KETOROLAC TROMETHAMINE 30 MG/ML (IVP) VIAL IV PUSH ONE (12:00)
[2017-06-23] MEDS ORDERED: PHENYLEPH/NS 1000 MCG/10 ML SYR IV ONE (12:00)
[2017-06-23] MEDS ORDERED: ePHEDrine/NS 25 MG/5 ML SYRINGE IV ONE (12:00)
[2017-06-23] MEDS ORDERED: ONDANSETRON HCL 4 MG/2 ML VIAL IV ONE (12:00)
[2017-06-23] MEDS ORDERED: PROPOFOL 200 MG/20 ML AMP IV ONE (12:00)
--- NOTE | 2017-06-23 12:13 | PD.ID.CON ---
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 ? walled off perforation, vs. diverticulum vs. mass CT was with suspected perirectal abscesses measuring up to 3.6 cm on the left with surrounding inflammatory change extending into the ischiorectal fossa bilaterally. Also suspected small perirectal abscess is on the right. On presentatioj afebrile, normal WBC Pt was seen by Dr Harmon and is scheduled for surgery this afternoon Review of Systems Gastrointestinal: COMPLAINS OF: Bloody stools, Constipation Neurologic: COMPLAINS OF: Abnormal gait, Localized weakness, Paresthesias Except as stated in HPI: all other systems reviewed are Neg Past Family Social History Allergies: Coded Allergies: No Known Allergies (Unverified , 06/21/17) Past Medical History Spinal cord injury at C5-C6, 14 years ago Past Surgical History Spinal fusion Active Ordered Medications Medications where reviewed in EMR Antibiotics Include: none Family History Negative for coronary artery disease/diabetes mellitus Social History Denies alcohol, tobacco and illicit drugs Physical Exam Vital Signs Vital Signs Date Time Temp Pulse Resp B/P (MAP) Pulse Ox O2 Delivery O2 Flow Rate FiO2 06/23/17 08:00 97.8 74 16 102/56 (71) 98 06/23/17 04:45 99.0 75 17 123/56 (78) 97 06/23/17 01:14 98.4 69 17 96/52 (67) 95 06/22/17 21:54 98.3 69 17 108/65 (79) 97 06/22/17 17:36 98.3 66 18 118/66 (83) 97 Physical Exam CONSTITUTIONAL/GENERAL: This is an adequately nourished patient, in no apparent distress. TUBES/LINES/DRAINS: SKIN: No jaundice, rashes, or lesions. Skin temperature appropriate. Not diaphoretic. HEAD: Atraumatic. Normocephalic. EYES: Pupils equal and round and reactive. Extraocular motions intact. No scleral icterus. No injection or drainage. Fundi not examined. ENT: Hearing grossly normal. Nose without bleeding or purulent drainage. Throat without visible erythema, exudates, masses, or lesions. NECK: Trachea midline. well healed scar on the back of the neck CARDIOVASCULAR: Regular rate and rhythm without murmurs, gallops, or rubs. No JVD. Peripheral pulses symmetric. RESPIRATORY/CHEST: Symmetric, unlabored respirations. Clear to auscultation. Breath sounds equal bilaterally. No wheezes, rales, or rhonchi. GASTROINTESTINAL: Abdomen soft, non-tender, nondistended. No hepato-splenomegaly , or palpable masses. No guarding. Bowel sounds present. GENITOURINARY: Without palpable bladder distension. MUSCULOSKELETAL: Extremities without clubbing, cyanosis, or edema. No mottling or clubbing. NEUROLOGICAL: Awake and alert. Incomplete tetraplegia. Able to move proximal BUE Normal speech Follows commands. Cognitively sharp PSYCHIATRIC: No obvious anxiety/depression. no apparent hallucinations or other psychotic thought process. Laboratory Laboratory Tests Test 06/23/17 04:11 White Blood Count 10.8 Red Blood Count 4.00 Hemoglobin 12.0 Hematocrit 35.6 Mean Corpuscular Volume 88.9 Mean Corpuscular Hemoglobin 29.9 Mean Corpuscular Hemoglobin Concent 33.7 Red Cell Distribution Width 12.8 Platelet Count 253 Mean Platelet Volume 7.6 Neutrophils (%) (Auto) 76.6 Lymphocytes (%) (Auto) 14.3 Monocytes (%) (Auto) 7.5 Eosinophils (%) (Auto) 1.1 Basophils (%) (Auto) 0.5 Neutrophils # (Auto) 8.3 Lymphocytes # (Auto) 1.5 Monocytes # (Auto) 0.8 Eosinophils # (Auto) 0.1 Basophils # (Auto) 0.1 CBC Comment DIFF FINAL Differential Comment Result Diagram: 06/23/17 0411 06/22/17 0242 Imaging Last Impressions Abdomen/Pelvis CT 06/22/17 0000 Signed Impressions: Service Date/Time: Thursday, June 22, 2017 17:57 - CONCLUSION: 1. They are suspected perirectal abscesses measuring up to 3.6 cm on the left with surrounding inflammatory change extending into the ischiorectal fossa bilaterally. Also suspected small perirectal abscess is on the right. 2. Trace pleural fluid. Abhilash Sen MD Assessment and Plan Assessment and Plan A: perirectal abscesses SCI withnresultant tetra[legia PLAN: Unasyn agree with plans for surgery Ethel Person MD Jun 23, 2017 12:13
--- NOTE | 2017-06-23 13:56 | HHI.PR ---
Subjective Remarks Follow-up rectal bleeding. Continues to have mild intermittent hematochezia. Discussed CT results agrees with CRS consultation. Discussed with GI Objective Vitals Vital Signs Date Time Temp Pulse Resp B/P (MAP) Pulse Ox O2 Delivery O2 Flow Rate FiO2 06/23/17 12:00 98.4 74 16 91/52 (65) 97 06/23/17 08:00 97.8 74 16 102/56 (71) 98 06/23/17 04:45 99.0 75 17 123/56 (78) 97 06/23/17 01:14 98.4 69 17 96/52 (67) 95 06/22/17 21:54 98.3 69 17 108/65 (79) 97 06/22/17 17:36 98.3 66 18 118/66 (83) 97 I/O 06/22/17 06/22/17 06/22/17 06/23/17 06/23/17 06/23/17 07:00 15:00 23:00 07:00 15:00 23:00 Intake Total 1190 ml Output Total 450 ml 2150 ml 700 ml 750 ml Balance -450 ml -960 ml -700 ml -750 ml Intake Oral 1190 ml Output Urine Total 450 ml 2150 ml 700 ml 750 ml # Bowel Movements 2 Result Diagram: 06/23/17 0411 06/22/17 0242 Imaging Last Impressions Abdomen/Pelvis CT 06/22/17 0000 Signed Impressions: Service Date/Time: Thursday, June 22, 2017 17:57 - CONCLUSION: 1. They are suspected perirectal abscesses measuring up to 3.6 cm on the left with surrounding inflammatory change extending into the ischiorectal fossa bilaterally. Also suspected small perirectal abscess is on the right. 2. Trace pleural fluid. Abhilash Sen MD Objective Remarks GENERAL: Thin, male lying in bed SKIN: No rashes, ecchymoses or lesions. Cool and dry. CARDIOVASCULAR: Regular rate and rhythm without murmurs, gallops, or rubs. RESPIRATORY: Clear to auscultation. Breath sounds equal bilaterally. No wheezes , rales, or rhonchi. GASTROINTESTINAL: Abdomen soft, non-tender, nondistended. No guarding. : Indwelling Duran MUSCULOSKELETAL: Extremities without clubbing, cyanosis, or edema. No joint tenderness, effusion, or edema noted. Paraplegic. NEUROLOGICAL: Awake and alert. Cranial nerves II through XII intact. Normal speech. Urinary Catheter: Yes Assessment to: Continue Duran insert reason: Prolonged Immobilization Date of Insertion: Jun 20, 2017 A/P Problem List: (1) GIB (gastrointestinal bleeding) ICD Code: K92.2 - Gastrointestinal hemorrhage, unspecified Assessment and Plan 1. GI bleed. Stable. Continue PPI. Colonoscopy with the following results : Abnormal mucosa in the rectum with a lot of blood in the rectum. ? walled off perforation, vs. diverticulum vs. mass. Abdominal CT showed perirectal abscess. ID started IV Unasyn and CRS will take patient to OR today 2. Constipation. Continue MiraLAX 3. Anemia secondary to acute blood loss. Monitor hemoglobin and hematocrit to keep hemoglobin at least 8. 4. SCI with Paraplegia. Patient with indwelling Duran. Continue home Ditropan, Myrbetriq and Baclofen FEN NPO NS at 75 cc/hr Electrolytes: monitor and replete prn Holding pharmacologic anticoagulation for active GI bleed Discharge Planning Patient needing sx Geovanny Llanos MD Jun 23, 2017 13:56
[2017-06-23] MEDS ORDERED: AMPICILLIN-SULBACTAM INJ 3 GM in SODIUM CHLORIDE 0.9% INJ 100 ML IV SCH (14:00)
[2017-06-23] MEDS ORDERED: LACTATED RINGER'S 1000 ML IV PRN (14:45)
[2017-06-23] MEDS ORDERED: POVIDONE IODINE 5% (ANTISEPSIS KIT) 4 APPLICATIONS EACH NARE PRN (14:45)
[2017-06-23] MEDS ORDERED: METOPROLOL TARTRATE 25 MG TAB PO PRN (14:45)
[2017-06-23] MEDS ORDERED: SODIUM CHLORID 0.9% 500 ML IV PRN (14:45)
[2017-06-23] MEDS ORDERED: CHLORHEXIDINE GLUCONATE 2 % 1 PACK (2 CLOTHS) TOPICAL PRN (14:45)
[2017-06-23] MEDS ORDERED: ACETAMINOPHEN 1000 MG/100 ML 100 ML IV ONE (15:23)
[2017-06-23] MEDS ORDERED: BUPIVACAINE/EPINEPHRINE 0.5% PF 10 ML VIAL ONE (15:53)
[2017-06-23] MEDS ORDERED: LIDOCAINE 2%/EPINEPHrine PF 1:200,000 20ML SDV ONE (15:53)
[2017-06-23] MEDS ORDERED: BACITRACIN TOP OINT 15 GM TUBE ONE (15:54)
--- NOTE | 2017-06-23 17:00 | HHI.PR ---
Immediate Post Op Note Procedure Date: Jun 23, 2017 Pre Op Diagnosis: rectal bleeding Post Op Diagnosis: rectal tear Surgeon: Blane Harmon Line Ordering Clinician(s): none Procedure: EUA, irrigation , debridement rectal tear Findings: lg tear ant rectal wall Complications: none Specimen(s) removed: none Estimated blood loss: min Anesthesia: MAC Drains: None IVF Patient to: PACU Patient Condition: Good Blane Harmon MD Jun 23, 2017 17:00
[2017-06-23] MEDS ORDERED: DO NOT ADM ANY ANTICOAGULANT DRUGS PRN (17:07)
[2017-06-23] MEDS ORDERED: MIDAZOLAM HCL 2 MG/2 ML VIAL ONE (17:27)
[2017-06-23] MEDS ORDERED: SODIUM CHLORID 0.9% 500 ML INJ 500 ML IV ONE (18:00)
[2017-06-23 20:00] VITALS: BP 95/55; PULSE 57; RESP 16; TEMP 97.3; O2SAT 98
[2017-06-23 22:30] VITALS: BP 85/51; PULSE 61; RESP 16; TEMP 97.9; O2SAT 99
[2017-06-24] VITALS (7 sets, daily range): BP systolic 73–106; BP diastolic 41–72; PULSE 58–88; RESP 16–18; TEMP 97.3–99; O2SAT 97–100
[2017-06-24 06:12] LABS: AUTOMATED NEUTROPHIL # 5.5 TH/MM3 (1.8-7.7); BASOPHIL % 0.5 % (0.0-2.0); EOSINOPHIL # 0.1 TH/MM3 (0-0.4); EOSINOPHIL % 1.3 % (0.0-4.0); HEMATOCRIT 32.4 % (39.0-51.0); HEMOGLOBIN 11.1 GM/DL (13.0-17.0); LYMPH % 19.7 % (9.0-44.0); LYMPHOCYTE # 1.5 TH/MM3 (1.0-4.8); MEAN CELL VOLUME 87.7 FL (80.0-100.0); MEAN CORPUSCULAR HEMOGLOBIN 30.1 PG (27.0-34.0); MEAN CORPUSCULAR HGB CONC 34.3 % (32.0-36.0); MEAN PLATELET VOLUME 7.2 FL (7.0-11.0); MONOCYTE # 0.6 TH/MM3 (0-0.9); NEUT % 70.5 % (16.0-70.0); PLATELET COUNT 273 TH/MM3 (150-450); RED BLOOD COUNT 3.69 MIL/MM3 (4.50-5.90); RED CELL DISTRIBUTION WIDTH 12.7 % (11.6-17.2); WHITE BLOOD COUNT 7.7 TH/MM3 (4.0-11.0)
[2017-06-24 06:32] LABS: BICARBONATE 28.6 MEQ/L (21.0-32.0); CALCIUM 7.9 MG/DL (8.5-10.1); CREATININE 0.58 MG/DL (0.60-1.30); MAGNESIUM 2.5 MG/DL (1.5-2.5)
--- NOTE | 2017-06-24 07:54 | HHI.PR ---
Subjective Remarks C/R Surg POD #1 afebrile, VSS UO good ce PO Objective - Vital Signs Date Time Temp Pulse Resp B/P (MAP) Pulse Ox O2 Delivery O2 Flow Rate FiO2 06/24/17 04:00 97.4 64 16 106/72 (83) 99 06/23/17 18:15 Nasal Cannula 2 Result Diagram: 06/24/1742406/24/17424 Objective Remarks PE abd - soft, flat rectal - packing dc'd, clean A/P Assessment and Plan Imp: stable post-op OOB adv diet dc plans Blane Harmon MD Jun 24, 2017 07:54
[2017-06-24] MEDS: BACLOFEN 10 MG TAB PO SCH (09:09)
[2017-06-24] MEDS: PANTOPRAZOLE SOD 40 MG DELAYED RELEASE TAB PO SCH (09:09)
[2017-06-24] MEDS: OXYBUTYNIN CHLORIDE 5 MG TAB PO SCH (09:10)
[2017-06-24] MEDS: SODIUM CHLORIDE 0.9% FLUSH 10 ML FLUSH IV FLUSH SCH ×2 (09:11→21:00)
[2017-06-24] MEDS: POLYETHYLENE GLYCOL 17 GM PKG PO SCH (09:11)
--- NOTE | 2017-06-24 09:11 | MP ---
cc: RAHUL CAMEJO M.D. DATE OF SURGERY 06/23/2017 PREOPERATIVE DIAGNOSIS Rectal bleeding, abnormal CT scan. PROCEDURE Exam under anesthesia with irrigation and debridement of a rectal tear. POSTOPERATIVE DIAGNOSIS Rectal bleeding, abnormal CT scan. SURGEON Dr. Camejo PROCEDURE After adequate anesthesia sedation, the patient was placed in the left lateral decubitus position and supported appropriately. The buttocks were then taped apart, prepped with Betadine solution and draped in the usual sterile fashion. Anal canal was gently dilated and a half-parsons retractor inserted. Examination revealed a tear of the mucosa in the anterior part of the rectum with rather jagged mucosa. The smooth muscle was visible at the base of the wound. There was some necrotic material around the tear and this was debrided sharply using electrocautery for hemostasis. The tear did extend up several inches and the base of the tear did appear to be healthy. No sinus tracts or other fistulas were identified. The remainder of the rectal mucosa appeared normal and the proximal bowel appeared to be pretty healthy. After adequate irrigation and debridement, hemostasis appeared adequate. The small cavity was packed with a long Kerlix dressing and a large fluff dressing placed externally. The patient tolerated the procedure quite well and was brought to recovery room in stable condition. MD MONSE Martinez/KEYSHAWN /8:51 AM /9:01 AM
[2017-06-24] MEDS: SODIUM CHLOR 0.9% 1000 ML INJ 1,000 ML IV SCH (11:00)
[2017-06-24] MEDS ORDERED: SODIUM CHLOR 0.9% 250 ML INJ 250 ML IV ONE (14:15)
--- NOTE | 2017-06-24 15:42 | HHI.PR ---
Subjective Remarks Downward trend in hemoglobin. Current hemoglobin is 11.1. She also had low blood pressures in the 70s systolic earlier today. Patient feels well. No complaints. Objective Vital Signs Date Time Temp Pulse Resp B/P (MAP) Pulse Ox O2 Delivery O2 Flow Rate FiO2 06/24/17 13:14 82/60 (67) 06/24/17 12:00 99.0 88 18 73/41 (52) 99 06/24/17 08:00 97.7 60 18 101/57 (72) 97 06/24/17 04:00 97.4 64 16 106/72 (83) 99 06/23/17 22:30 97.9 61 16 85/51 (62) 99 06/23/17 20:00 97.3 57 16 95/55 (68) 98 06/23/17 18:15 97.8 63 18 93/52 (66) 97 Nasal Cannula 2 06/23/17 18:00 74 21 96/54 (68) 97 Nasal Cannula 2 06/23/17 17:50 79 21 85/54 (64) 97 Nasal Cannula 2 06/23/17 17:45 81 23 82/47 (59) 100 Nasal Cannula 2 06/23/17 17:41 85 18 82/52 (62) 99 06/23/17 17:35 92 18 82/46 (58) 99 06/23/17 17:32 93 17 66/38 (47) 99 06/23/17 17:30 82 23 89/52 (64) 99 Nasal Cannula 2 06/23/17 17:15 82 23 89/52 (64) 99 Nasal Cannula 2 06/23/17 17:07 98.0 73 14 92/55 (67) 99 Nasal Cannula 2 I/O 06/23/17 06/23/17 06/23/17 06/24/17 06/24/17 06/24/17 07:00 15:00 23:00 07:00 15:00 23:00 Intake Total 900 ml 1200 ml 398 ml Output Total 700 ml 750 ml 325 ml 900 ml 1500 ml Balance -700 ml -750 ml 575 ml 300 ml 398 ml -1500 ml Intake Oral 0 ml 1200 ml IV Total 500 ml 398 ml Other 400 ml Output Urine Total 700 ml 750 ml 300 ml 900 ml 1500 ml Estimated Blood Loss 25 ml Result Diagram: 06/24/1742406/24/17424 Objective Remarks GENERAL: NAD, A&Ox3 HEAD: Normocephalic. NECK: Supple, trachea midline. No lymphadenopathy. EYES: No scleral icterus. No injection or drainage. CARDIOVASCULAR: Regular rate and rhythm without murmurs, gallops, or rubs. RESPIRATORY: Breath sounds equal bilaterally. No accessory muscle use. GASTROINTESTINAL: Abdomen soft, non-tender, nondistended. MUSCULOSKELETAL: No cyanosis, or edema. SKIN: Warm and dry. NEURO: Global neurological deficitis (chronic). A/P Problem List: (1) GIB (gastrointestinal bleeding) ICD Code: K92.2 - Gastrointestinal hemorrhage, unspecified Assessment and Plan 31-year-old male admitted secondary to GI bleed GI bleed Anemia Follow H&H for stability If stability as documented via H&H patient can be considered for discharge Rectal tear Status post debridement of necrotic tissues and repair Continue Unasyn Colorectal surgery following History of spinal cord injury Paraplegia Continue chronic indwelling Duran catheter Continue Ditropan, Myrbetriq and Baclofen DVT prophylaxis Anticoagulants avoided due to bleeding Thony Weinstein MD Jun 24, 2017 15:42
[2017-06-24] MEDS ORDERED: MIDODRINE 5 MG TAB PO PRN (17:00)
[2017-06-25 05:11] LABS: AUTOMATED NEUTROPHIL # 2.7 TH/MM3 (1.8-7.7); BASOPHIL % 0.8 % (0.0-2.0); EOSINOPHIL # 0.1 TH/MM3 (0-0.4); HEMATOCRIT 33.6 % (39.0-51.0); HEMOGLOBIN 11.6 GM/DL (13.0-17.0); LYMPH % 35.1 % (9.0-44.0); LYMPHOCYTE # 1.8 TH/MM3 (1.0-4.8); MEAN CELL VOLUME 87.8 FL (80.0-100.0); MEAN CORPUSCULAR HEMOGLOBIN 30.2 PG (27.0-34.0); MEAN CORPUSCULAR HGB CONC 34.4 % (32.0-36.0); MEAN PLATELET VOLUME 7.2 FL (7.0-11.0); MONOCYTE # 0.5 TH/MM3 (0-0.9); NEUT % 52.1 % (16.0-70.0); PLATELET COUNT 264 TH/MM3 (150-450); RED BLOOD COUNT 3.83 MIL/MM3 (4.50-5.90); RED CELL DISTRIBUTION WIDTH 12.8 % (11.6-17.2); WHITE BLOOD COUNT 5.2 TH/MM3 (4.0-11.0)
[2017-06-25 05:34] LABS: ALBUMIN 2.9 GM/DL (3.4-5.0); AST (GOT) 9 U/L (15-37); BICARBONATE 29.3 MEQ/L (21.0-32.0); BLOOD UREA NITROGEN 6 MG/DL (7-18); CALCIUM 8.4 MG/DL (8.5-10.1); CHLORIDE 105 MEQ/L (98-107); CREATININE 0.59 MG/DL (0.60-1.30); GLOMERULAR FILTRATION RATE 161 ML/MIN (>89); GLUCOSE,RANDOM 89 MG/DL (74-106); SODIUM (NA) 141 MEQ/L (136-145)
[2017-06-25 05:38] LABS: ALKALINE PHOSPHATASE 57 U/L (45-117); ALT (GPT) 15 U/L (12-78); TOTAL BILIRUBIN ADULT 0.2 MG/DL (0.2-1.0); TOTAL PROTEIN 6.5 GM/DL (6.4-8.2)
[2017-06-25 08:00] VITALS: BP 118/69; PULSE 77; RESP 16; TEMP 98.3; O2SAT 99
[2017-06-25] MEDS: POLYETHYLENE GLYCOL 17 GM PKG PO SCH ×2 (09:00→10:40)
[2017-06-25] MEDS: SODIUM CHLORIDE 0.9% FLUSH 10 ML FLUSH IV FLUSH SCH (09:00)
[2017-06-25 09:06] VITALS: BP 118/69; PULSE 83; RESP 17; TEMP 98.3; O2SAT 99
[2017-06-25] MEDS: BACLOFEN 10 MG TAB PO SCH (10:39)
[2017-06-25] MEDS: PANTOPRAZOLE SOD 40 MG DELAYED RELEASE TAB PO SCH (10:39)
[2017-06-25] MEDS: OXYBUTYNIN CHLORIDE 5 MG TAB PO SCH (10:39)
--- NOTE | 2017-06-25 11:05 | HHI.FF ---
Face to Face Verification Diagnosis: (1) Rectal laceration (2) GIB (gastrointestinal bleeding) Home Health Nursing Order: Signs/symptoms of disease process Wound care and dressing changes Instructions: Monitor post op wound (rectal laceration repair) for signs of infection and monitor for baseline bowel movement pattern (prior baseline is bowel movements every 1-2 days. I have seen patient Reuben Frank on 06/25/17. My clinical findings support the need for the requested home health care services because: Ltd mobility - disease progression Deconditioned w/ increased weakness Limited ability to care for self I certify that my clinical findings support that this patient is homebound because: Unsteady gait/balance Unsafe to leave home unassisted [id number] bed/chair Unable to use public transportation Thony Weinstein MD Jun 25, 2017 11:05
[2017-06-25] MEDS ORDERED: DOCU100C15 PO (15:01)
--- NOTE | 2017-06-25 16:09 | HHI.DS ---
Discharge Summary Admission Date Jun 23, 2017 at 14:09 Discharge Date: Jun 25, 2017 Admitting Diagnosis GI BLEED (BRBPR) (1) GIB (gastrointestinal bleeding) ICD Code: K92.2 - Gastrointestinal hemorrhage, unspecified Diagnosis: Principal Procedures Rectal fissure repair Brief History - From Admission -year-old male with a past medical history significant for spinal cord injury presents the emergency department with bright red blood per rectum. The patient reports that 1 week ago when doing his usual enema no stool was produced and his pharmacy innovation assistant did digital stimulation resulting in the retrieval of several pieces of hard stool with minimal amounts of blood. Since that time the patient has done 2 micro-enemas and 2 full enemas without incident. Yesterday the patient was doing his usual micro-enema when he noticed a significant amount of blood with the enema. He came to the emergency department for evaluation, was not found to be actively bleeding, H&H was stable and was discharged to home. The patient reports he was getting ready for bed around midnight when he noticed that blood head seeped through his diaper and saturated his sheets. He returned to the emergency department where he was found to have approximately 120 cc's of bright red blood without stool present in his diaper. H&H remained stable. The patient denies any palpitation , shortness of breath or dizziness/lightheadedness. He reports he feels that he is in good health. He does endorse a 5 day history of fever with last symptoms 2 days ago. Denies nausea/vomiting or diarrhea. Vital signs: Temperature 98.2, pulse 81, respirations 12, BP 106/56, pulse ox 99% on room air. CBC/BMP: 06/25/17 0451 06/25/17 0451 Significant Findings Laboratory Tests Test 06/23/17 04:11 06/24/17 04:25 06/25/17 04:51 Red Blood Count 4.00 MIL/MM3 (4.50-5.90) 3.69 MIL/MM3 (4.50-5.90) 3.83 MIL/MM3 (4.50-5.90) Hemoglobin 12.0 GM/DL (13.0-17.0) 11.1 GM/DL (13.0-17.0) 11.6 GM/DL (13.0-17.0) Hematocrit 35.6 % (39.0-51.0) 32.4 % (39.0-51.0) 33.6 % (39.0-51.0) Neutrophils (%) (Auto) 76.6 % (16.0-70.0) 70.5 % (16.0-70.0) Neutrophils # (Auto) 8.3 TH/MM3 (1.8-7.7) Blood Urea Nitrogen 5 MG/DL (7-18) 6 MG/DL (7-18) Creatinine 0.58 MG/DL (0.60-1.30) 0.59 MG/DL (0.60-1.30) Random Glucose 64 MG/DL (74-106) Calcium Level 7.9 MG/DL (8.5-10.1) 8.4 MG/DL (8.5-10.1) Monocytes (%) (Auto) 10.0 % (0.0-8.0) Albumin 2.9 GM/DL (3.4-5.0) Aspartate Amino Transf (AST/SGOT) 9 U/L (15-37) PE at Discharge PE abd - soft, flat rectal - packing dc'd, clean Hospital Course Mr. Frank is a 31-year-old male. He was admitted secondary to GI bleed. He was found to have a rectal fissure. This was repaired by colorectal surgery. She's been doing well postop and has upper trend in his hemoglobin. Bowel movement has occurred with limited feces but large clot. Clot size was within expected postop parameters. Patient is medically stable and cleared for discharge to home. He declines option for home health care visits. He has a care provider that lives with him. He is advised to monitor for signs of infection and to report any recurrent or high-volume bleeding. An outpatient H& H prescription is provided should he wish to recheck his blood counts. Follow- up with colorectal surgery as an outpatient. Medically stable for discharge today. Pt Condition on Discharge: Stable Discharge Disposition: Discharge Home Discharge Time: <= 30 minutes Discharge Instructions DIET: Follow Instructions for: As Tolerated, No Restrictions Activities you can perform: Regular-No Restrictions Follow up Referrals: Colorectal Surgery - 2 Weeks with Blane Harmon MD PCP Follow-up - 2 Weeks New Medications: Docusate Sodium (Docusate Sodium) 100 Mg Cap 100 MG PO BID PRN for CONSTIPATION, #30 CAP 0 Refills Continued Medications: Baclofen (Baclofen) 10 Mg Tab 10 MG PO DAILY, TAB 0 Refills Mirabegron (Myrbetriq) 50 Mg Tab 50 MG PO DAILY for Urinary Symptom Managemen, #30 TAB 0 Refills Oxybutynin (Ditropan) 5 Mg Tab 5 MG PO DAILY for Urinary Symptom Managemen, #90 TAB 0 Refills Polyethylene Glycol 3350 Powder (Miralax Powder) 17 Gm Powd 17 GM PO DAILY for Constipation, #1 CAN 0 Refills Mix and dissolve one measuring cap-ful (17 grams) in water or juice. Thony Weinstein MD Jun 25, 2017 16:09
--- NOTE | 2017-07-04 08:59 | PQ ---
Physician Query Response Document PATIENT: ANITA CASTRO : 1985 ADMIT DATE: 06/23/2017 2:09 PM DISCH DATE: 06/25/2017 6:45 PM RESPONDING PROVIDER #: Q Chipitter QUERY TEXT: Debridement Type Based on your medical judgment, can you further clarify the precise nature, depth, extent, and/or met hods of wound debridement utilized in this case, such as: --EXCISIONAL debridement --NON-EXCISIONAL debridement --Other debridement --Other Specify Based on your medical judgment, can you further clarify the specific structures debrided such as: --Skin --Subcutaneous tissue --Fascia --Muscle --Other Specify Your prompt response is appreciated, please do not hesitate to contact the CDI/Coding Hotline with an y questions, comments and/or concerns you may have at ext. [phone]. The patient's Clinical Indicators include: OP REPORT 06/23: Examination revealed a tear of the mucosa in the anterior part of the rectum with rather jagged mucosa. The smooth muscle was visible at the base of the wound. There was some necrotic material around the tear and this was debrided sharply using electrocautery for hemostasis. The tear did extend up several inches and the base of the tear did appear to be healthy. Query created by: Marilyn Shine on 06/30/2017 1:38 PM RESPONSE TEXT: Mucosa, submucosa, limitted muscle - sharp debridement Electronically signed by: Blane Harmon MD 07/04/2017 8:56 AM
== END 2017-06-25 18:45 | disposition home or self-care (01) | DRG 393 ==
LOC: NEPE 00:57 → NEDA 02:27 → NEPFCDU 03:50 → OBSVTOIN 06-23 14:09 → N07B 06-23 14:46 → N06B 06-23 18:37
PROVIDERS: ADMIT Hospitalist; ATTEND Hospitalist
PROC: 0DJD8ZZ Inspection of Lower Intestinal Tract, Via Natural or Artificial Opening Endoscopic (ICD-10-PCS; 2017-06-22)
PROC: 0DD Gastrointestinal System, Extraction (ICD-10-PCS; principal; 2017-06-23 16:18)
DX: K61.1 Rectal abscess (principal); G82.54 Quadriplegia, C5-C7 incomplete; D62 Acute posthemorrhagic anemia; S14.105S Unspecified injury at C5 level of cervical spinal cord, sequela; K59.09 Other constipation; K64.9 Unspecified hemorrhoids; K64.4 Residual hemorrhoidal skin tags; Z98.1 Arthrodesis status
CPT/HCPCS: 74177; 80048; 80053; 83735; 85014; 85018; 85025; 85610; 85730; 86850; 86900; 86901; 96361; 96374; C9113; G0378; J0131; J0295; J1885; J2250; J2370; J2405; J3010; J7030; J7040; J7050; J7120; Q9963; Q9967

== ENCOUNTER 2017-06-27 01:45 | Inpatient (IN) | payer OTHER ==
[~2017-06-27] VITALS: Ht 162.6 cm; Wt 59.0 kg
[2017-06-27] VITALS (12 sets, daily range): BP systolic 66–102; BP diastolic 40–56; PULSE 68–99; RESP 16–20; TEMP 97.9–99.4; O2SAT 96–100
[~2017-06-27 01:45] MED LIST changes: +DOCU100C15 PO
[2017-06-27] MEDS ORDERED: SODIUM CHLORIDE 0.9% FLUSH 10 ML FLUSH IVF PRN (02:15)
[2017-06-27 02:37] LABS: BASOPHIL % 0.3 % (0.0-2.0); EOSINOPHIL % 0.3 % (0.0-4.0); HEMATOCRIT 30.5 % (39.0-51.0); HEMOGLOBIN 10.4 GM/DL (13.0-17.0); LYMPH % 10.3 % (9.0-44.0); LYMPHOCYTE # 1.3 TH/MM3 (1.0-4.8); MEAN CELL VOLUME 86.6 FL (80.0-100.0); MEAN CORPUSCULAR HEMOGLOBIN 29.6 PG (27.0-34.0); MEAN CORPUSCULAR HGB CONC 34.2 % (32.0-36.0); MEAN PLATELET VOLUME 7.6 FL (7.0-11.0); MONO % 6.9 % (0.0-8.0); MONOCYTE # 0.8 TH/MM3 (0-0.9); NEUT % 82.2 % (16.0-70.0); PLATELET COUNT 353 TH/MM3 (150-450); RED BLOOD COUNT 3.52 MIL/MM3 (4.50-5.90); RED CELL DISTRIBUTION WIDTH 12.8 % (11.6-17.2); WHITE BLOOD COUNT 12.2 TH/MM3 (4.0-11.0)
[2017-06-27 02:59] LABS: BICARBONATE 29.5 MEQ/L (21.0-32.0); CALCIUM 8.3 MG/DL (8.5-10.1); CREATININE 0.7 MG/DL (0.60-1.30)
--- NOTE | 2017-06-27 03:37 | PD ---
HPI Chief Complaint: GI Complaint Time Seen by Provider: 02:08 Travel History International Travel<30 days: No Contact w/Intl Traveler<30days: No Traveled to known affect area: No History of Present Illness HPI 31-year-old male arrives due to Rectal bleeding. He was discharged from here yesterday following an admission for colonoscopy in colorectal surgery due to a chair the anterior rectum. He describes he believes to be a low blood pressure has since generalized weakness. Patient's friend believes he might appear pale. PFSH Past Medical History Chest Pain: No Congestive Heart Failure: No Neurologic: Yes (c 5-6 SCI with paraplegia) Immunizations Current: Yes Past Surgical History Oral Surgery: Yes (extractions) Social History Alcohol Use: Yes (seldom ) Tobacco Use: No Substance Use: No Allergies-Medications (Allergen,Severity, Reaction): Coded Allergies: No Known Allergies (Unverified , 06/21/17) Reported Meds & Prescriptions Reported Meds & Active Scripts Active Docusate Sodium 100 Mg Cap 100 Mg PO BID PRN Miralax Powder (Polyethylene Glycol 3350 Powder) 17 Gm Powd 17 Gm PO DAILY Mix and dissolve one measuring cap-ful (17 grams) in water or juice. Reported Ditropan (Oxybutynin Chloride) 5 Mg Tab 5 Mg PO DAILY Myrbetriq (Mirabegron) 50 Mg Tab 50 Mg PO DAILY Baclofen 10 Mg Tab 10 Mg PO DAILY Review of Systems Except as stated in HPI: all other systems reviewed are Neg General / Constitutional: No: Fever Physical Exam Narrative GENERAL: 31-year-old male thin mild distress GENITOURINARY: The patient has a Duran catheter in place. SKIN: Warm and dry. HEAD: Atraumatic. Normocephalic. NECK: Trachea midline. No JVD. CARDIOVASCULAR: Regular rate and rhythm. RESPIRATORY: No accessory muscle use. Clear to auscultation. Breath sounds equal bilaterally. GASTROINTESTINAL: Soft. No focus of tenderness. MUSCULOSKELETAL: Extremities without clubbing, cyanosis, or edema. No obvious deformities. NEUROLOGICAL: Awake and alert. No obvious cranial nerve deficits. Motor grossly within normal limits. Five out of 5 muscle strength in the arms and legs. Normal speech. PSYCHIATRIC: Appropriate mood and affect; insight and judgment normal. Data Data Last Documented VS Vital Signs Date Time Temp Pulse Resp B/P (MAP) Pulse Ox O2 Delivery O2 Flow Rate FiO2 06/27/17 01:47 98.0 80 16 93/56 (68) 99 Room Air VS reviewed Orders Orders Basic Metabolic Panel (Bmp) (06/27/17 02:11) Complete Blood Count With Diff (06/27/17 02:11) Ecg Monitoring (06/27/17 02:11) Iv Access Insert/Monitor (06/27/17 02:11) Oximetry (06/27/17 02:11) Sodium Chloride 0.9% Flush (Ns Flush) (06/27/17 02:15) Sodium Chlor 0.9% 1000 Ml Inj (Ns 1000 M (06/27/17 04:00) Labs Laboratory Tests Test 06/27/17 02:20 White Blood Count 12.2 TH/MM3 Red Blood Count 3.52 MIL/MM3 Hemoglobin 10.4 GM/DL Hematocrit 30.5 % Mean Corpuscular Volume 86.6 FL Mean Corpuscular Hemoglobin 29.6 PG Mean Corpuscular Hemoglobin Concent 34.2 % Red Cell Distribution Width 12.8 % Platelet Count 353 TH/MM3 Mean Platelet Volume 7.6 FL Neutrophils (%) (Auto) 82.2 % Lymphocytes (%) (Auto) 10.3 % Monocytes (%) (Auto) 6.9 % Eosinophils (%) (Auto) 0.3 % Basophils (%) (Auto) 0.3 % Neutrophils # (Auto) 10.0 TH/MM3 Lymphocytes # (Auto) 1.3 TH/MM3 Monocytes # (Auto) 0.8 TH/MM3 Eosinophils # (Auto) 0.0 TH/MM3 Basophils # (Auto) 0.0 TH/MM3 CBC Comment DIFF FINAL Differential Comment Blood Urea Nitrogen 18 MG/DL Creatinine 0.70 MG/DL Random Glucose 118 MG/DL Calcium Level 8.3 MG/DL Sodium Level 136 MEQ/L Potassium Level 3.9 MEQ/L Chloride Level 102 MEQ/L Carbon Dioxide Level 29.5 MEQ/L Anion Gap 5 MEQ/L Estimat Glomerular Filtration Rate 132 ML/MIN MDM Medical Decision Making Medical Screen Exam Complete: Yes Emergency Medical Condition: Yes Medical Record Reviewed: Yes Differential Diagnosis Rectal bleed, rectal tear, anemia Narrative Course CBC & BMP Diagram 06/27/17 02:20 Calcium Level 8.3 L Two days prior Hgb was 11.6. Admission for monitoring/cbc d/w Dr Santos Diagnosis Primary Impression: Rectal laceration Qualified Codes: S36.63XA - Laceration of rectum, initial encounter Additional Impression: GIB (gastrointestinal bleeding) Qualified Codes: K92.2 - Gastrointestinal hemorrhage, unspecified Admitting Information Admitting Physician Requests: Thony Adam MD Jun 27, 2017 03:37
[2017-06-27] MEDS ORDERED: SODIUM CHLOR 0.9% 1000 ML INJ 1,000 ML IV ONE (04:00)
[2017-06-27] MEDS ORDERED: ACETAMINOPHEN/HYDROcodone 325 MG/5 MG TAB PO PRN (04:15)
[2017-06-27] MEDS ORDERED: ONDANSETRON HCL 4 MG/2 ML VIAL IVP PRN (04:15)
[2017-06-27] MEDS ORDERED: MORPHINE SULFATE 2 MG/ML INJ IV PUSH PRN (04:15)
[2017-06-27] MEDS ORDERED: ACETAMINOPHEN 325 MG TAB PO PRN (04:15)
[2017-06-27] MEDS ORDERED: BISACODYL 10 MG SUPP RECTAL PRN (04:15)
[2017-06-27] MEDS ORDERED: MAGNESIUM HYDROXIDE SUSP 30 ML CUP PO PRN (04:15)
[2017-06-27] MEDS ORDERED: SODIUM CHLORIDE 0.9% FLUSH 10 ML FLUSH IV FLUSH PRN (04:15)
[2017-06-27] MEDS ORDERED: LACTULOSE SYRUP 20 GM/30 ML CUP PO PRN (04:15)
[2017-06-27] MEDS ORDERED: SENNOSIDES 8.6 MG TAB PO PRN (04:15)
--- NOTE | 2017-06-27 04:33 | HHI.HP ---
[facility] No Primary Care Physician Admission Diagnosis RECTAL BLEEDING Diagnoses: (1) Rectal bleed Diagnosis: Principal (2) Paraplegia Diagnosis: Principal (3) Leukocytosis Diagnosis: Principal Travel History International Travel<30 Days: No Contact w/Intl Traveler <30 Da: No Traveled to Known Affected Are: No History of Present Illness This is a 31-year-old male with PMH of Paraplegia who presented to the ER w/ complaints of rectal bleeding. Recent admit 06/23-06/25/17 for similar complaints , found to have rectal laceration and underwent repair by Dr. Harmon on . States he had enema w/ few clots prior to being discharged, however he reports significant amount of clots since then. No fever, chills, nausea or vomiting. Does report generalized weakness. On arrival, BP 93/56, HR 80, O2 sat 99% on RA, Afebrile. WBC 12.2. Hemogram and 10.4, previously 11.6 on . Chemistry essentially unremarkable. Review of Systems Except as stated in HPI: all other systems reviewed are Neg ROS: 14 point review of systems otherwise negative. Past Family Social History Past Medical History PMH: Paraplegia Past Surgical History PAST SURGICAL HISTORY: Dental Extractions Allergies: Coded Allergies: No Known Allergies (Unverified , 06/21/17) Family History PAST FAMILY HISTORY: Reviewed. No h/o DM or CAD Social History PAST SOCIAL HISTORY: Occasional alcohol. Negative for tobacco or drugs. Physical Exam Vital Signs Vital Signs Date Time Temp Pulse Resp B/P (MAP) Pulse Ox O2 Delivery O2 Flow Rate FiO2 06/27/17 01:47 98.0 80 16 93/56 (68) 99 Room Air Physical Exam PE: GENERAL: Young Latin male in no acute distress. Friend at bedside. I examined pads brought from home, significant amount of clotting. HEENT: PERRLA, EOMI. No scleral icterus or conjunctival pallor. No lid lag or facial droop. CARDIOVASCULAR: Regular rate and rhythm. No obvious murmurs to auscultation. No chest tenderness to palpation. RESPIRATORY: No obvious rhonchi or wheezing. Clear to auscultation. Breath sounds equal bilaterally. GASTROINTESTINAL: Abdomen soft, non-tender, nondistended. BS normal. Duran in place MUSCULOSKELETAL: Extremities without clubbing, cyanosis, or edema. No obvious deformities. NEUROLOGICAL: Awake, alert and oriented x4. No focal neurologic deficits. Moving both upper and lower extremities spontaneously. Laboratory Laboratory Tests Test 06/27/17 02:20 White Blood Count 12.2 Red Blood Count 3.52 Hemoglobin 10.4 Hematocrit 30.5 Mean Corpuscular Volume 86.6 Mean Corpuscular Hemoglobin 29.6 Mean Corpuscular Hemoglobin Concent 34.2 Red Cell Distribution Width 12.8 Platelet Count 353 Mean Platelet Volume 7.6 Neutrophils (%) (Auto) 82.2 Lymphocytes (%) (Auto) 10.3 Monocytes (%) (Auto) 6.9 Eosinophils (%) (Auto) 0.3 Basophils (%) (Auto) 0.3 Neutrophils # (Auto) 10.0 Lymphocytes # (Auto) 1.3 Monocytes # (Auto) 0.8 Eosinophils # (Auto) 0.0 Basophils # (Auto) 0.0 CBC Comment DIFF FINAL Differential Comment Blood Urea Nitrogen 18 Creatinine 0.70 Random Glucose 118 Calcium Level 8.3 Sodium Level 136 Potassium Level 3.9 Chloride Level 102 Carbon Dioxide Level 29.5 Anion Gap 5 Estimat Glomerular Filtration Rate 132 Result Diagram: 06/27/1721906/27/17219 Caprini VTE Risk Assessment Caprini VTE Risk Assessment: No/Low Risk (score <= 1) Caprini Risk Assessment Model Point Value = 1 Point Value = 2 Point Value = 3 Point Value = 5 Age 41-60 Minor surgery BMI > 25 kg/m2 Swollen legs Varicose veins or History of unexplained or recurrent spontaneous Oral contraceptives or hormone replacement Sepsis (< 1 month) Serious lung disease, including pneumonia (< 1 month) Abnormal pulmonary function Acute myocardial infarction Congestive heart failure (< 1 month) History of inflammatory bowel disease Medical patient at bed rest Age 61-74 Arthroscopic surgery Major open surgery (> 45 min) Laparoscopic surgery (> 45 min) Malignancy Confined to bed (> 72 hours) Immobilizing plaster cast Central venous access Age >= 75 History of VTE Family history of VTE Factor V Leiden Prothrombin [id number] Lupus anticoagulant Anticardiolipin antibodies Elevated serum homocysteine Heparin-induced thrombocytopenia Other congenital or acquired thrombophilia Stroke (< 1 month) Elective arthroplasty Hip, pelvis, or leg fracture Acute spinal cord injury (< 1 month) Prophylaxis Regimen Total Risk Factor Score Risk Level Prophylaxis Regimen 0-1 Low Early ambulation 2 Moderate Order ONE of the following: *Sequential Compression Device (SCD) *Heparin 5000 units SQ BID 3-4 Higher Order ONE of the following medications: *Heparin 5000 units SQ TID *Enoxaparin/Lovenox 40 mg SQ daily (WT < 150 kg, CrCl > 30 mL/min) *Enoxaparin/Lovenox 30 mg SQ daily (WT < 150 kg, CrCl > 10-29 mL/min) *Enoxaparin/Lovenox 30 mg SQ BID (WT < 150 kg, CrCl > 30 mL/min) AND/OR *Sequential Compression Device (SCD) 5 or more Highest Order ONE of the following medications: *Heparin 5000 units SQ TID (Preferred with Epidurals) *Enoxaparin/Lovenox 40 mg SQ daily (WT < 150 kg, CrCl > 30 mL/min) *Enoxaparin/Lovenox 30 mg SQ daily (WT < 150 kg, CrCl > 10-29 mL/min) *Enoxaparin/Lovenox 30 mg SQ BID (WT < 150 kg, CrCl > 30 mL/min) AND *Sequential Compression Device (SCD) Assessment and Plan Problem List: (1) Rectal bleed ICD Code: K62.5 - Hemorrhage of anus and rectum (2) Paraplegia ICD Code: G82.20 - Paraplegia, unspecified (3) Leukocytosis ICD Code: D72.829 - Elevated white blood cell count, unspecified Assessment and Plan A/P: 1. Rectal Bleed: Recurrent. Recent admit 06/23-06/25/17 for similar, found to have rectal laceration, s/p repair by Dr. Harmon on 06/24/17, now w/ significant amount of clots. Last enema prior to discharge. Denies trauma. Monitor Hgb closely, Hgb 10.4, down from 11.6 on 06/25/17. Consult CRS for further evaluation/possible intervention. 2. Paraplegia: h/o C5-C6 injury w/ subsequent paraplegia, at baseline. Will order Pressure Ulcer Prevention Protocol and Sofcare mattress. BP 80-90's systolic, at baseline w/ h/o spinal cord injury. 3. Leukocytosis: WBC 12.2. No obvious infection, afebrile. Possibly reactive from rectal bleeding, check repeat labs for trend. 4. DVT Prophylaxis: Pharmacologic contraindication secondary to rectal bleeding 5. Social work for d/c planning as needed. 6. Case discussed w/ ER physician at length, labs/records/imaging reviewed by me. Amelia Santos MD Jun 27, 2017 04:33
[2017-06-27 06:45] LABS: HEMATOCRIT 23.8 % (39.0-51.0); HEMOGLOBIN 8.2 GM/DL (13.0-17.0)
[2017-06-27] MEDS ORDERED: SODIUM CHLOR 0.9% 250 ML INJ 250 ML IV ONE (08:45)
[2017-06-27] MEDS ORDERED: MIRABEGRON 50 MG PO SCH (09:00)
[2017-06-27] MEDS: SODIUM CHLOR 0.9% 1000 ML INJ 1,000 ML IV SCH (10:08)
[2017-06-27] MEDS: OXYBUTYNIN CHLORIDE 5 MG TAB PO SCH (10:08)
[2017-06-27] MEDS: BACLOFEN 10 MG TAB PO SCH (10:08)
[2017-06-27] MEDS: SODIUM CHLORIDE 0.9% FLUSH 10 ML FLUSH IV FLUSH SCH ×2 (10:09→21:00)
[2017-06-27] MEDS: DOCUSATE SODIUM 50 MG/SENNA 8.6 MG TAB PO SCH ×2 (10:09→23:09)
--- NOTE | 2017-06-27 10:34 | HHI.PR ---
Subjective Remarks Follow-up rectal bleeding. Patient states he is weak and almost fainted. Noted episode of hypotension. Agrees with blood transfusion. Discussed with RN Objective Vitals Vital Signs Date Time Temp Pulse Resp B/P (MAP) Pulse Ox O2 Delivery O2 Flow Rate FiO2 06/27/17 08:33 97.9 68 18 66/40 (49) 97 06/27/17 04:26 06/27/17 04:24 16 98 Room Air 06/27/17 01:47 98.0 80 16 93/56 (68) 99 Room Air Result Diagram: 06/27/17 0610 06/27/17 0220 Objective Remarks GENERAL: Young Latin male in no acute distress. Well-developed and well- nourished HEENT: PERRLA, EOMI. No scleral icterus or conjunctival pallor. No lid lag or facial droop. CARDIOVASCULAR: Regular rate and rhythm. No obvious murmurs to auscultation. No chest tenderness to palpation. RESPIRATORY: No obvious rhonchi or wheezing. Clear to auscultation. Breath sounds equal bilaterally. GASTROINTESTINAL: Abdomen soft, non-tender, nondistended. BS normal. Duran in place MUSCULOSKELETAL: Extremities without clubbing, cyanosis, or edema. No obvious deformities. NEUROLOGICAL: Awake, alert and oriented x4. No focal neurologic deficits. He is incomplete quadriplegia Procedures none A/P Problem List: (1) Rectal bleed ICD Code: K62.5 - Hemorrhage of anus and rectum (2) Paraplegia ICD Code: G82.20 - Paraplegia, unspecified (3) Leukocytosis ICD Code: D72.829 - Elevated white blood cell count, unspecified Assessment and Plan 1. Rectal Bleed: Recurrent. Recent admit 06/23-06/25/17 for similar, found to have rectal laceration, s/p repair by Dr. Harmon on 06/24/17, now w/ significant amount of clots. Last enema prior to discharge. Denies trauma. NPO and IVF. Per CRS, obs vs rpt exam in OR. He has symptomatic anemia secondary to acute blood loss. We'll transfuse 2 units packed RBC to keep hemoglobin at least 8 2. Incomplete quad: h/o C5-C6 injury w/ subsequent quadriplegia, at baseline. Continue Pressure Ulcer Prevention Protocol and Sofcare mattress. BP 80-90's systolic, at baseline w/ h/o spinal cord injury. 3. Leukocytosis: WBC 12.2. No obvious infection, afebrile. Possibly reactive from rectal bleeding, check repeat labs for trend. 4. DVT Prophylaxis: SCD. Pharmacologic contraindication secondary to rectal bleeding. Discharge Planning Not ready for discharge with ongoing rectal bleeding Geovanny Llanos MD Jun 27, 2017 10:34
--- NOTE | 2017-06-27 11:34 | MB ---
cc: AFTAB LEUNG M.D. DATE OF CONSULTATION: 06/27/2017 CHIEF COMPLAINT Rectal bleeding. HISTORY OF PRESENT ILLNESS The patient is a 31-year-old male with a history of paraplegia who was operated on by Dr. Harmon 3 days prior to this. At that time he was found to have rectal laceration and underwent debridement and control of bleeding on the . He was discharged to home and ___ he passed some stool when he began having more significant blood. He states just prior to coming in he had one episode of passing a large amount of clot. He denies any nausea, vomiting, abdominal pain. He did get some clamminess and felt very weak. Denies any diarrhea or constipation. According to his [employer] assistant manager he was described as having stool about the consistency of cake batter with a moderate amount of blood. Since being in the ER he has had two or three additional episodes of passing clot and his hemoglobin has dropped from an initial hemoglobin of 10.4 to 8.2. PAST MEDICAL HISTORY Paraplegia. PAST SURGICAL HISTORY Dental extraction. Anal exam with debridement. SOCIAL HISTORY Occasional tobacco. The patient denies alcohol or drugs. PHYSICAL EXAMINATION GENERAL: Reveals a thin male, who appears somewhat pale. NEURO: Alert and oriented x3. EXTREMITIES: The patient has no movement of his lower extremities. He does have some movement of his upper extremities. He has no edema. CARDIOVASCULAR: Regular rate. CHEST: Breathing is symmetric bilaterally and nonlabored. ABDOMEN: Soft, nontender, nondistended. There is a Duran in place. ANAL/RECTAL EXAM: External anal exam is essentially negative. Digital rectal examination I can feel the open area anteriorly and a small amount of clot still within the rectum. LABORATORY DATA Laboratory work reveals as I said, a white count of 10.4 on admission, 8.2 this morning, platelets of 353 and white count of 12.2. Chemistry was essentially normal with the exception of mild elevation of glucose of 118. IMPRESSION Rectal bleeding from rectal tear. I will discuss this case with Dr. Harmon. He is slated to get 2 units of blood as his pressure is somewhat depressed. In addition, we will increase his fluids. However, these will frequently stop on their own but if not Dr. Haromn may need to take him back to the operating room for another exam. MD TESSY Dodson/JENNIFER /10:33 AM /11:13 AM
[2017-06-28] VITALS (7 sets, daily range): BP systolic 100–111; BP diastolic 54–74; PULSE 59–84; RESP 18; TEMP 98.5–98.8; O2SAT 97–100
[2017-06-28] MEDS: SODIUM CHLOR 0.9% 1000 ML INJ 1,000 ML IV SCH ×5 (02:03→18:48)
[2017-06-28 07:13] LABS: AUTOMATED NEUTROPHIL # 3.6 TH/MM3 (1.8-7.7); BASOPHIL # 0.1 TH/MM3 (0-0.2); BASOPHIL % 0.9 % (0.0-2.0); EOSINOPHIL # 0.1 TH/MM3 (0-0.4); EOSINOPHIL % 0.9 % (0.0-4.0); HEMOGLOBIN 9.3 GM/DL (13.0-17.0); LYMPH % 32.2 % (9.0-44.0); LYMPHOCYTE # 2.1 TH/MM3 (1.0-4.8); MEAN CELL VOLUME 85.2 FL (80.0-100.0); MEAN CORPUSCULAR HEMOGLOBIN 30.6 PG (27.0-34.0); MEAN CORPUSCULAR HGB CONC 35.9 % (32.0-36.0); MEAN PLATELET VOLUME 7.8 FL (7.0-11.0); MONO % 9.9 % (0.0-8.0); MONOCYTE # 0.6 TH/MM3 (0-0.9); NEUT % 56.1 % (16.0-70.0); PLATELET COUNT 214 TH/MM3 (150-450); RED BLOOD COUNT 3.06 MIL/MM3 (4.50-5.90); WHITE BLOOD COUNT 6.4 TH/MM3 (4.0-11.0)
[2017-06-28 07:26] LABS: ALBUMIN 2.5 GM/DL (3.4-5.0); AST (GOT) 10 U/L (15-37); BICARBONATE 27.7 MEQ/L (21.0-32.0); BLOOD UREA NITROGEN 14 MG/DL (7-18); CALCIUM 8.1 MG/DL (8.5-10.1); CHLORIDE 107 MEQ/L (98-107); CREATININE 0.61 MG/DL (0.60-1.30); GLOMERULAR FILTRATION RATE 155 ML/MIN (>89); GLUCOSE,RANDOM 84 MG/DL (74-106); SODIUM (NA) 140 MEQ/L (136-145)
[2017-06-28 07:27] LABS: ALT (GPT) 19 U/L (12-78)
[2017-06-28 07:30] LABS: ALKALINE PHOSPHATASE 43 U/L (45-117); TOTAL BILIRUBIN ADULT 0.5 MG/DL (0.2-1.0); TOTAL PROTEIN 4.8 GM/DL (6.4-8.2)
[2017-06-28] MEDS: BACLOFEN 10 MG TAB PO SCH (08:33)
[2017-06-28] MEDS: OXYBUTYNIN CHLORIDE 5 MG TAB PO SCH (08:33)
[2017-06-28] MEDS: SODIUM CHLORIDE 0.9% FLUSH 10 ML FLUSH IV FLUSH SCH ×2 (08:33→21:00)
[2017-06-28] MEDS: DOCUSATE SODIUM 50 MG/SENNA 8.6 MG TAB PO SCH (08:34)
--- NOTE | 2017-06-28 09:48 | HHI.PR ---
Subjective Remarks Follow up for rectal bleeding in a patient s/p rectal laceration repair. The patient reports feeling much better today. He denies any further episode of rectal bleeding. He denies any lightheadedness or dizziness since he received transfusion yesterday. Has had intermittent low BPs, which patient states is normal for him. He denies any other medical complaints at this time. Objective Vitals Vital Signs Date Time Temp Pulse Resp B/P (MAP) Pulse Ox O2 Delivery O2 Flow Rate FiO2 06/28/17 06:56 98.8 74 18 111/74 (86) 98 06/28/17 04:53 98.5 75 18 100/54 (69) 100 06/28/17 03:34 61 06/27/17 23:04 98.4 70 18 88/53 (65) 100 06/27/17 21:23 98.4 94 18 81/46 (58) 99 06/27/17 20:31 98.3 99 20 78/43 96 06/27/17 20:10 98.7 81 16 77/47 100 06/27/17 19:15 98.6 86 16 80/50 99 06/27/17 17:16 99.3 95 20 100/55 (70) 96 06/27/17 15:10 98.7 97 16 100/51 97 06/27/17 14:51 99.4 92 16 102/51 99 06/27/17 12:36 98.2 96 20 85/53 (64) 97 I/O 06/27/17 06/27/17 06/27/17 06/28/17 06/28/17 06/28/17 07:00 15:00 23:00 07:00 15:00 23:00 Intake Total 410 ml 415 ml Balance 410 ml 415 ml Packed Cells 400 ml 400 ml Blood Product IV Normal Saline Flush 10 ml 15 ml Result Diagram: 06/28/1753006/28/17530 Objective Remarks GENERAL: Well-nourished, well-developed pleasant young male patient in [facility]. SKIN: Warm and dry. No rash. Pale but improved compared to yesterday. HEENT: Normocephalic. Atraumatic.Pupils equal and round. Mucous membranes pink and moist. NECK: Supple. Trachea midline. CARDIOVASCULAR: Regular rate and rhythm. S1, S2 noted. No murmur appreciated. RESPIRATORY: No accessory muscle use. Clear to auscultation. Breath sounds equal bilaterally. GASTROINTESTINAL: Abdomen soft, non-tender, nondistended. Normoactive bowel sounds x4. MUSCULOSKELETAL: Paraplegic. Extremities without clubbing, cyanosis, or edema. NEUROLOGICAL: Awake and alert. No obvious cranial nerve deficits. Normal speech. PSYCHIATRIC: Appropriate mood and affect; insight and judgment normal. Procedures none Medications and IVs Current Medications Medications (Trade) Dose Ordered Sig/Hubert Route Start Time Stop Time Status Last Admin (NS Flush) 2 ml UNSCH PRN IV FLUSH 06/27/17 04:15 (NS Flush) 2 ml BID IV FLUSH 06/27/17 09:00 06/28/17 08:33 (Zofran Inj) 4 mg Q6H PRN IVP 06/27/17 04:15 (Tylenol) 650 mg Q6H PRN PO 06/27/17 04:15 ([place] 5-325 Mg) 1 tab Q4H PRN PO 06/27/17 04:15 (Morphine Inj) 2 mg Q3H PRN IV PUSH 06/27/17 04:15 (Lactulose Liq) 30 ml DAILY PRN PO 06/27/17 04:15 (Lioresal) 10 mg DAILY PO 06/27/17 09:00 06/28/17 08:33 (Ditropan) 5 mg DAILY PO 06/27/17 09:00 06/28/17 08:33 Patient Own Medication PT OWN MED: MIRABEG... DAILY PO 06/27/17 09:00 Future Hold Sodium Chloride 1,000 ml @ 70 mls/hr [id number] IV 06/27/17 09:00 06/28/17 08:33 (Carafate Liq) 1 gm DAILY .XX 06/28/17 09:15 A/P Problem List: (1) Rectal bleed ICD Code: K62.5 - Hemorrhage of anus and rectum (2) Paraplegia ICD Code: G82.20 - Paraplegia, unspecified (3) Leukocytosis ICD Code: D72.829 - Elevated white blood cell count, unspecified Assessment and Plan 31-year-old male with PMH of Paraplegia who presented to the ER w/ complaints of rectal bleeding. Recent admit 06/23-06/25/17 for similar complaints, found to have rectal laceration and underwent repair by Dr. Harmon on 06/24/17. Rectal Bleed: Recurrent. Recent admit 06/23-06/25/17 for similar, found to have rectal laceration, s/p repair by Dr. Harmon on 06/24/17, now w/ significant amount of clots. Last enema prior to discharge. Denies trauma. -Keep NPO for now -Continue IVF hydration -Monitor H&H, s/p 2u pRBC transfusion on 06/27 -Consult CRS, await further recommendations Symptomatic Anemia: secondary to above. Hgb dropped from 10.4 to 8.2. Patient symptomatic with lightheadedness/near syncope. 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 -Continue Pressure Ulcer Prevention Protocol and SoftCare mattress. -BP 80-90's systolic, at baseline w/ h/o spinal cord injury. Leukocytosis: WBC 12.2. No obvious infection, afebrile. Possibly reactive from rectal bleeding -repeat labs show improvement with WBC 6K -resolved DVT Prophylaxis: SCD. Pharmacologic contraindication secondary to rectal bleeding. Discharge Planning Await further recommendations from CRS. Elizabet Yeager PA-C Jun 28, 2017 9:48 am
[2017-06-28] MEDS: SUCRALFATE 1 GM/10 ML CUP SCH (15:03)
--- NOTE | 2017-06-28 22:04 | HHI.PR ---
Subjective Remarks C/R Surg afebrile, VSS no BRB NO stool Objective - Vital Signs Date Time Temp Pulse Resp B/P (MAP) Pulse Ox O2 Delivery O2 Flow Rate FiO2 06/28/17 21:09 98.7 68 18 110/68 (82) 97 06/27/17 04:24 Room Air Result Diagram: 06/28/17 0531 06/28/17 0531 Objective Remarks PE alert Abd - soft, flat, no BRB A/P Assessment and Plan Imp: stable, no active bleeding ce PO cont carafate enemas after BM , plan DC Blane Harmon MD Jun 28, 2017 22:04
[2017-06-29] VITALS (12 sets, daily range): BP systolic 83–108; BP diastolic 46–59; PULSE 60–95; RESP 16–18; TEMP 97.6–98.9; O2SAT 96–100
[2017-06-29 05:12] LABS: AUTOMATED NEUTROPHIL # 5.5 TH/MM3 (1.8-7.7); BASOPHIL # 0.1 TH/MM3 (0-0.2); BASOPHIL % 0.8 % (0.0-2.0); EOSINOPHIL # 0.1 TH/MM3 (0-0.4); EOSINOPHIL % 1.8 % (0.0-4.0); HEMATOCRIT 26.6 % (39.0-51.0); HEMOGLOBIN 9.5 GM/DL (13.0-17.0); LYMPHOCYTE # 1.8 TH/MM3 (1.0-4.8); MEAN CELL VOLUME 85.9 FL (80.0-100.0); MEAN CORPUSCULAR HEMOGLOBIN 30.6 PG (27.0-34.0); MEAN CORPUSCULAR HGB CONC 35.6 % (32.0-36.0); MEAN PLATELET VOLUME 7.6 FL (7.0-11.0); MONO % 8.1 % (0.0-8.0); MONOCYTE # 0.7 TH/MM3 (0-0.9); NEUT % 67.3 % (16.0-70.0); PLATELET COUNT 211 TH/MM3 (150-450); RED BLOOD COUNT 3.09 MIL/MM3 (4.50-5.90); RED CELL DISTRIBUTION WIDTH 13.8 % (11.6-17.2); WHITE BLOOD COUNT 8.1 TH/MM3 (4.0-11.0)
[2017-06-29 05:56] LABS: BICARBONATE 28.4 MEQ/L (21.0-32.0); CALCIUM 7.8 MG/DL (8.5-10.1); CREATININE 0.56 MG/DL (0.60-1.30)
[2017-06-29] MEDS: SODIUM CHLOR 0.9% 1000 ML INJ 1,000 ML IV SCH (09:45)
[2017-06-29] MEDS: SODIUM CHLORIDE 0.9% FLUSH 10 ML FLUSH IV FLUSH SCH ×2 (09:45→21:00)
[2017-06-29] MEDS: OXYBUTYNIN CHLORIDE 5 MG TAB PO SCH (10:10)
[2017-06-29] MEDS: BACLOFEN 10 MG TAB PO SCH (10:10)
[2017-06-29] MEDS: SUCRALFATE 1 GM/10 ML CUP SCH ×2 (10:10→21:00)
[2017-06-29] MEDS ORDERED: MAGNESIUM HYDROXIDE SUSP 30 ML CUP PO PRN (11:45)
[2017-06-29] MEDS ORDERED: MAGNESIUM HYDROXIDE SUSP 30 ML CUP PO ONE (11:45)
--- NOTE | 2017-06-29 11:45 | HHI.PR ---
Subjective Remarks Follow up for rectal bleeding due to rectal tear. Patient is currently doing well. No BM yet. No fever, chills. Tolerating diet well. Objective Vitals Vital Signs Date Time Temp Pulse Resp B/P (MAP) Pulse Ox O2 Delivery O2 Flow Rate FiO2 06/29/17 09:18 98.2 60 16 108/59 (75) 99 06/29/17 04:53 98.1 68 18 107/58 (74) 97 06/29/17 04:02 60 06/29/17 00:02 72 06/28/17 21:09 98.7 68 18 110/68 (82) 97 06/28/17 20:00 84 06/28/17 15:01 68 I/O 06/28/17 06/28/17 06/28/17 06/29/17 06/29/17 06/29/17 07:00 15:00 23:00 07:00 15:00 23:00 Intake Total 415 ml 975 ml Output Total 3500 ml 1000 ml Balance 415 ml -2525 ml -1000 ml Intake Oral 520 ml IV Total 455 ml Packed Cells 400 ml Blood Product IV Normal Saline Flush 15 ml Output Urine Total 3500 ml 1000 ml # Bowel Movements 0 Result Diagram: 06/29/17 0430 06/29/17 0430 Objective Remarks GENERAL: AOX3, NAD. Paraplegic. SKIN: Warm and dry. HEAD: Normocephalic. EYES: No scleral icterus. No injection or drainage. NECK: Supple, trachea midline. No JVD or lymphadenopathy. CARDIOVASCULAR: Regular rate and rhythm without murmurs, gallops, or rubs. RESPIRATORY: Breath sounds equal bilaterally. No accessory muscle use. GASTROINTESTINAL: Abdomen soft, non-tender, nondistended. MUSCULOSKELETAL: No cyanosis, or edema. BACK: Nontender without obvious deformity. No CVA tenderness. Procedures none A/P Problem List: (1) Rectal bleed ICD Code: K62.5 - Hemorrhage of anus and rectum (2) Paraplegia ICD Code: G82.20 - Paraplegia, unspecified (3) Leukocytosis ICD Code: D72.829 - Elevated white blood cell count, unspecified Assessment and Plan This is a 31-year-old male with PMH of Paraplegia who presented to the ER w/ complaints of rectal bleeding. Recent admit 06/23-06/25/17 for similar complaints , found to have rectal laceration and underwent repair by Dr. Harmon on . - Rectal bleed - s/p recent repair of rectal laceration by Dr. Harmon ([facility]). - No further bleeding but has not had any BM either. - Milk of Mag today. - Sucralfate enema BID. - Acute blood loss anemia - Likely due to rectal bleeding - Hgb 10.4 --> 8.2. Received 2 units. Hgb 9.3, 9.4 today. - Paraplegia - Maintain pressure ulcer prevention - Leukocytosis - no evidence of acute infection. WBC normalized. Full code. SCDs. Discharge: Following a non-bloody bowel movement, patient can be discharged home. Edi Booker DO Jun 29, 2017 11:45
--- NOTE | 2017-06-29 22:32 | HHI.PR ---
Subjective Remarks C/R Surg afebrile, VSS no BRB NO stool ce PO Objective - Vital Signs Date Time Temp Pulse Resp B/P (MAP) Pulse Ox O2 Delivery O2 Flow Rate FiO2 06/29/17 19:59 98.7 63 18 100/52 (68) 98 06/27/17 04:24 Room Air Result Diagram: 06/29/17 0430 06/29/17 0430 Objective Remarks PE alert Abd - soft, flat, no BRB A/P Assessment and Plan Imp: stable, no active bleeding ce PO cont carafate enemas after BM , plan DC lax slowly Blane Harmon MD Jun 29, 2017 22:32
[2017-06-30 03:38] VITALS: BP 100/60; PULSE 77; RESP 18; TEMP 98.5; O2SAT 98
[2017-06-30 07:40] VITALS: PULSE 60
[2017-06-30 08:30] VITALS: BP 93/50; PULSE 66; RESP 16; TEMP 98; O2SAT 97
[2017-06-30] MEDS: SODIUM CHLORIDE 0.9% FLUSH 10 ML FLUSH IV FLUSH SCH (09:00)
--- NOTE | 2017-06-30 09:14 | HHI.PR ---
Subjective Remarks Follow-up for rectal bleeding. Patient is currently doing well. No chest pain , shortness of breath, fever or chills. He had small bowel movement yesterday with dark blood mixed with stool. Dr. Harmon saw patient and recommended that patient goes home. Stool with blood will occur periodically next several weeks and this is expected. Objective Vitals Vital Signs Date Time Temp Pulse Resp B/P (MAP) Pulse Ox O2 Delivery O2 Flow Rate FiO2 06/30/17 08:30 98.0 66 16 93/50 (64) 97 06/30/17 07:40 60 06/30/17 03:38 98.5 77 18 100/60 (73) 98 06/29/17 23:26 98.9 80 18 83/46 (58) 96 06/29/17 23:00 69 06/29/17 19:59 98.7 63 18 100/52 (68) 98 06/29/17 16:29 98.2 87 16 87/50 (62) 100 06/29/17 15:22 81 06/29/17 12:55 97.6 95 16 88/53 (65) 98 06/29/17 12:08 94 06/29/17 09:18 98.2 60 16 108/59 (75) 99 I/O 06/29/17 06/29/17 06/29/17 06/30/17 06/30/17 06/30/17 07:00 15:00 23:00 07:00 15:00 23:00 Intake Total 975 ml 520 ml Output Total 3500 ml 1000 ml 480 ml 1225 ml Balance -2525 ml -1000 ml 40 ml -1225 ml Intake Oral 520 ml 320 ml IV Total 455 ml 200 ml Output Urine Total 3500 ml 1000 ml 480 ml 1225 ml # Bowel Movements 0 Result Diagram: 06/29/17 0430 06/29/17 0430 Objective Remarks GENERAL: AOX3, NAD. Paraplegic. SKIN: Warm and dry. HEAD: Normocephalic. EYES: No scleral icterus. No injection or drainage. NECK: Supple, trachea midline. No JVD or lymphadenopathy. CARDIOVASCULAR: Regular rate and rhythm without murmurs, gallops, or rubs. RESPIRATORY: Breath sounds equal bilaterally. No accessory muscle use. GASTROINTESTINAL: Abdomen soft, non-tender, nondistended. MUSCULOSKELETAL: No cyanosis, or edema. BACK: Nontender without obvious deformity. No CVA tenderness. Procedures none A/P Problem List: (1) Rectal bleed ICD Code: K62.5 - Hemorrhage of anus and rectum (2) Paraplegia ICD Code: G82.20 - Paraplegia, unspecified (3) Leukocytosis ICD Code: D72.829 - Elevated white blood cell count, unspecified Assessment and Plan This is a 31-year-old male with PMH of Paraplegia who presented to the ER w/ complaints of rectal bleeding. Recent admit 06/23-06/25/17 for similar complaints , found to have rectal laceration and underwent repair by Dr. Harmon on . - Rectal bleed - s/p recent repair of rectal laceration by Dr. Harmon ([facility]). - Had BM with stool mixed with dark blood. Dr. Harmon states that this is expected and will likely continue for next several weeks. - Sucralfate enema BID. - Patient requested a magazine keeper consult. - Acute blood loss anemia - Likely due to rectal bleeding - Hgb 10.4 --> 8.2. Received 2 units. Hgb 9.3, 9.4. - Paraplegia - Maintain pressure ulcer prevention - Leukocytosis - no evidence of acute infection. WBC normalized. Full code. SCDs. Possible discharge today or in the AM. Discussed at length with patient, Dr. Harmon (Colorectal surgery). Edi Booker DO Jun 30, 2017 9:14 am
[2017-06-30] MEDS: BACLOFEN 10 MG TAB PO SCH (09:42)
[2017-06-30] MEDS: OXYBUTYNIN CHLORIDE 5 MG TAB PO SCH (09:42)
--- NOTE | 2017-06-30 10:58 | HHI.PR ---
Subjective Remarks C/R Surg afebrile, VSS Small am't old looking blood NO stool ce PO Objective - Vital Signs Date Time Temp Pulse Resp B/P (MAP) Pulse Ox O2 Delivery O2 Flow Rate FiO2 06/30/17 08:30 98.0 66 16 93/50 (64) 97 06/27/17 04:24 Room Air Result Diagram: 06/29/17 04306/29/17 0430 Objective Remarks PE alert Abd - soft, flat, no BRB A/P Assessment and Plan Imp: stable, no active bleeding ce PO cont carafate enemas after BM , plan DC lax slowly to keep stool soft Blane Harmon MD Jun 30, 2017 10:58
[2017-06-30 11:43] VITALS: BP 76/46; PULSE 86; RESP 16; TEMP 97.6; O2SAT 98
[2017-06-30] MEDS: SUCRALFATE 1 GM/10 ML CUP SCH (12:45)
[2017-06-30] MEDS ORDERED: MILKSUS PO (14:50)
[2017-06-30] MEDS ORDERED: SUCR1S RECTAL (14:50)
--- NOTE | 2017-06-30 14:52 | HHI.DS ---
Discharge Summary Admission Date Jun 27, 2017 at 11:07 am Discharge Date: Jun 30, 2017 Admitting Diagnosis RECTAL BLEEDING (1) Rectal bleed ICD Code: K62.5 - Hemorrhage of anus and rectum (2) Paraplegia ICD Code: G82.20 - Paraplegia, unspecified (3) Leukocytosis ICD Code: D72.829 - Elevated white blood cell count, unspecified Procedures none Brief History - From Admission This is a 31-year-old male with PMH of Paraplegia who presented to the ER w/ complaints of rectal bleeding. Recent admit 06/23-06/25/17 for similar complaints , found to have rectal laceration and underwent repair by Dr. Harmon on . States he had enema w/ few clots prior to being discharged, however he reports significant amount of clots since then. No fever, chills, nausea or vomiting. Does report generalized weakness. On arrival, BP 93/56, HR 80, O2 sat 99% on RA, Afebrile. WBC 12.2. Hemogram and 10.4, previously 11.6 on . Chemistry essentially unremarkable. CBC/BMP: 06/29/17 0430 06/29/17 0430 Significant Findings Laboratory Tests Test 06/28/17 05:31 06/29/17 04:30 Red Blood Count 3.06 MIL/MM3 (4.50-5.90) 3.09 MIL/MM3 (4.50-5.90) Hemoglobin 9.3 GM/DL (13.0-17.0) 9.5 GM/DL (13.0-17.0) Hematocrit 26.0 % (39.0-51.0) 26.6 % (39.0-51.0) Monocytes (%) (Auto) 9.9 % (0.0-8.0) 8.1 % (0.0-8.0) Total Protein 4.8 GM/DL (6.4-8.2) Albumin 2.5 GM/DL (3.4-5.0) Calcium Level 8.1 MG/DL (8.5-10.1) 7.8 MG/DL (8.5-10.1) Alkaline Phosphatase 43 U/L (45-117) Aspartate Amino Transf (AST/SGOT) 10 U/L (15-37) Blood Urea Nitrogen 6 MG/DL (7-18) Creatinine 0.56 MG/DL (0.60-1.30) Random Glucose 72 MG/DL (74-106) PE at Discharge GENERAL: AOX3, NAD. Paraplegic. SKIN: Warm and dry. HEAD: Normocephalic. EYES: No scleral icterus. No injection or drainage. NECK: Supple, trachea midline. No JVD or lymphadenopathy. CARDIOVASCULAR: Regular rate and rhythm without murmurs, gallops, or rubs. RESPIRATORY: Breath sounds equal bilaterally. No accessory muscle use. GASTROINTESTINAL: Abdomen soft, non-tender, nondistended. MUSCULOSKELETAL: No cyanosis, or edema. BACK: Nontender without obvious deformity. No CVA tenderness. Pt update on day of discharge Patient is currently doing well. He had small bowel movement yesterday - stool was mixed with blood. Per Dr. Harmon, this is not unexpected. Hospital Course This is a 31-year-old male with PMH of Paraplegia who presented to the ER w/ complaints of rectal bleeding. Recent admit 06/23-06/25/17 for similar complaints , found to have rectal laceration and underwent repair by Dr. Harmon on . - Rectal bleed - s/p recent repair of rectal laceration by Dr. Harmon ([facility]). - Had BM with stool mixed with dark blood. Dr. Harmon states that this is expected and will likely continue for next several weeks. - Sucralfate enema BID. - Patient requested a otolaryngology teacher consult who has already evaluated patient prior to discharge. - Acute blood loss anemia - Likely due to rectal bleeding - Hgb 10.4 --> 8.2. Received 2 units. Hgb 9.3, 9.4. - Paraplegia - Maintain pressure ulcer prevention - Leukocytosis - no evidence of acute infection. WBC normalized. - I had several long conversation with patient as well as patient and Dr. Harmon and later again with patient and his aunt. All questions were answered. Patient is instructed to maintain a diet according to dietitian's recommendations. It is expected to see bloody stool in the next 2-3 or even 3- 4 weeks. However if he notices any profuse bleeding, he is advised to come back to the hospital. Pt Condition on Discharge: Good Discharge Disposition: Disch w/ Home Health Serv Discharge Time: > 30 minutes Discharge Instructions DIET: Follow Instructions for: As Tolerated, No Restrictions Activities you can perform: Regular-No Restrictions Follow up Referrals: Appointment for Follow Up - 2 Weeks with Blane Harmon MD New Medications: Magnesium Hydroxide Liq (Milk of Magnesia Liq) 400 Mg/5 Ml Susp 30 ML PO DAILY PRN for CONSTIPATION, #1 BOTTLE 0 Refills Sucralfate Liq (Sucralfate Liq) 1 Gram/10 Ml [place] 1 GM RECTAL BID for Duodenal ulcer, #900 ML 0 Refills on empty stomach Continued Medications: Baclofen (Baclofen) 10 Mg Tab 10 MG PO DAILY, TAB 0 Refills Docusate Sodium (Docusate Sodium) 100 Mg Cap 100 MG PO BID PRN for CONSTIPATION, #30 CAP 0 Refills Mirabegron (Myrbetriq) 50 Mg Tab 50 MG PO DAILY for Urinary Symptom Managemen, #30 TAB 0 Refills Oxybutynin (Ditropan) 5 Mg Tab 5 MG PO DAILY for Urinary Symptom Managemen, #90 TAB 0 Refills Polyethylene Glycol 3350 Powder (Miralax Powder) 17 Gm Powd 17 GM PO DAILY for Constipation, #1 CAN 0 Refills Mix and dissolve one measuring cap-ful (17 grams) in water or juice. Edi Booker DO Jun 30, 2017 14:52
--- NOTE | 2017-06-30 14:58 | HHI.FF ---
Face to Face Verification Diagnosis: (1) Rectal bleed (2) Paraplegia Home Health Nursing Order: Medical education Signs/symptoms of disease process Medication education-adverse effect Nursing assessment with vital signs I have seen patient Reuben Frank on 06/30/17. My clinical findings support the need for the requested home health care services because: Deconditioned w/ increased weakness Limited ability to care for self Infection w/ risk of complications I certify that my clinical findings support that this patient is homebound because: Post-op weakness Unsafe to leave home unassisted Need for psychosocial assistance Mhp-soajvtyrim-bwhldbpi bed/chair Unable to use public transportation Edi Booker DO Jun 30, 2017 2:58 pm
== END 2017-06-30 17:16 | disposition home health service (06) | DRG 393 ==
LOC: NEPE 01:45 → NEDA 04:06 → NEPFCDU 04:49 → OBSVTOIN 11:07
PROVIDERS: ADMIT Hospitalist; ATTEND Hospitalist
PROC: 30233N1 Transfusion of Nonautologous Red Blood Cells into Peripheral Vein, Percutaneous Approach (ICD-10-PCS; principal; 2017-06-27)
DX: S36.63XA Laceration of rectum, initial encounter (principal); G82.54 Quadriplegia, C5-C7 incomplete; D62 Acute posthemorrhagic anemia; I95.9 Hypotension, unspecified; K92.1 Melena; D72.829 Elevated white blood cell count, unspecified
CPT/HCPCS: 36430; 80048; 80053; 85014; 85018; 85025; 86850; 86900; 86901; 86920; 99285; J7030; P9016